=== PATIENT | female | born 1940 | race Caucasian/White ===

== ENCOUNTER 2018-08-30 20:13 | Inpatient (IN) | payer MEDICARE, MEDICAID ==
--- NOTE | 2018-08-30 20:36 | ED Physician Chart ---
ED Chief Complaint/HPI - Patient Information Date Seen:: 08/30/18 Time Seen:: 20:35 Chief Complaint:: Generalized weakness History of Present Illness:: 78 yo female was brought from [facility] to ER for evaluation of generalized weakness for 1 day. Patient had significant body tremor on arrival. Allergies:: Allergies Allergy/AdvReac Type Severity Reaction Status Date / Time No Known Allergies Allergy Verified 07/08/16 16:17 Vitals:: Vital Signs - 8 hr 08/30/18 20:15 Temp 99.6 F HR 74 RR 16 BP 95/50 O2 Sat % 95 ED Review of Systems - Review of Systems General/Constitutional: Fever Skin: Skin lesions Head: No headache Eyes: No pain ENT: No nasal drainage Neck: No stiffness Cardio Vascular: No edema Pulmonary: No cough GI: No nausea, No vomiting Musculoskeletal: No bone or joint pain Neurological: Weakness Other: The review of systems is limited due to dementia and is based on chart reivew. ED Past Medical History - Past Medical History Past Medical History: HTN, CAD, Dyslipidemia, PUD/GERD, Dementia, Other ( Epilepsy, anemia, IBS) Social History: Non Smoker, No Alcohol, No Drug Use Surgical History: None Psychiatricy History: Other (anxiety) Family Medical History - Family Member Mother History Unknown: Yes ED Physical Exam - Physical Examination General/Constitutional: Awake Other Gen/Cons comments:: body tremor Eyes: PERRL Other Skin comments:: multiple, diffuse, small, scattered scaly skin lesions ENMT: Nasal exam nl Neck: No nuchal rigidity Respiratory: No Wheeze/Rhonchi/Rales Cardio Vascular: RRR, No murmur, gallop, rubs, NL S1 S2 GI: No tenderness/rebounding/guarding Extremities: No edema Other Neuro/Psych comments:: oriented to self only ED Labs/Radiology/EKG Results - Lab Results Results: Laboratory Last Values WBC 12.8 Th/cmm (4.8-10.8) H 08/30/18 20:35 RBC 2.96 Mil/cmm (3.80-5.20) L 08/30/18 20:35 Hgb 8.8 gm/dL (12-16) L 08/30/18 20:35 Hct 26.3 % (41.0-60) L 08/30/18 20:35 MCV 88.6 fl (81-100) 08/30/18 20:35 MCH 29.8 pg (27.0-31.0) 08/30/18 20:35 MCHC Differential 33.7 pg (28.0-36.0) 08/30/18 20:35 RDW 13.5 % (11.5-20.0) 08/30/18 20:35 Plt Count 495 Th/cmm (150-400) H 08/30/18 20:35 MPV 7.0 fl 08/30/18 20:35 Add Manual Diff YES 08/30/18 20:35 Band Neutrophils % 2 % (0-10) 08/30/18 20:35 Neutrophils (Manual) 74 % (40-80) 08/30/18 20:35 Lymphocytes 7 % (20-50) L 08/30/18 20:35 Monocytes 5 % (2-10) 08/30/18 20:35 Eosinophils 12 % (0-5) H 08/30/18 20:35 Sodium 139 mEq/L (136-145) 08/30/18 20:35 Potassium 6.1 mEq/L (3.5-5.1) H* 08/30/18 20:35 Chloride 107 mEq/L (98-107) 08/30/18 20:35 Carbon Dioxide 10.6 mEq/L (21.0-31.0) L 08/30/18 20:35 Anion Gap 27.5 (7.0-16.0) H 08/30/18 20:35 BUN 140 mg/dL (7-25) H* 08/30/18 20:35 Creatinine 11.1 mg/dL (0.6-1.2) H* 08/30/18 20:35 Est GFR ( Amer) TNP 08/30/18 20:35 Est GFR (Non-Af Amer) TNP 08/30/18 20:35 BUN/Creatinine Ratio 12.6 08/30/18 20:35 Glucose 159 mg/dL (70-105) H 08/30/18 20:35 Whole Bld Lactic Acid 1.09 mmol/L (0.60-1.99) 08/30/18 20:35 Calcium 9.8 mg/dL (8.6-10.3) 08/30/18 20:35 Total Bilirubin 2.1 mg/dL (0.3-1.0) H 08/30/18 20:35 AST 212 U/L (13-39) H 08/30/18 20:35 ALT 215 U/L (7-52) H 08/30/18 20:35 Alkaline Phosphatase 1228 U/L (34-104) H 08/30/18 20:35 Ammonia 83 umol/L (16-53) H 08/30/18 20:35 Troponin I 0.05 ng/mL (0.01-0.05) 08/30/18 20:35 B-Natriuretic Peptide 55.0 pg/mL (5.0-100.0) 08/30/18 20:35 Total Protein 7.7 gm/dL (6.0-8.3) 08/30/18 20:35 Albumin 3.9 gm/dL (3.7-5.3) 08/30/18 20:35 Globulin 3.8 gm/dL 08/30/18 20:35 Albumin/Globulin Ratio 1.0 (1.0-1.8) 08/30/18 20:35 Lipase 137 U/L (11-82) H 08/30/18 20:35 TSH 2.57 uIU/ml (0.34-5.60) 08/30/18 20:35 Urine Source CATH 08/30/18 21:05 Urine Color YELLOW 08/30/18 21:05 Urine Clarity CLOUDY (CLEAR) H 08/30/18 21:05 Urine pH 6.0 (4.6 - 8.0) 08/30/18 21:05 Ur Specific [place] 1.015 (1.005-1.030) 08/30/18 21:05 Urine Protein 30 mg/dL (NEGATIVE) H 08/30/18 21:05 Urine Glucose (UA) 100 mg/dL (NEGATIVE) H 08/30/18 21:05 Urine Ketones NEGATIVE mg/dL (NEGATIVE) 08/30/18 21:05 Urine Blood MODERATE (NEGATIVE) H 08/30/18 21:05 Urine Nitrate POSITIVE (NEGATIVE) H 08/30/18 21:05 Urine Bilirubin NEGATIVE (NEGATIVE) 08/30/18 21:05 Urine Urobilinogen 0.2 E.U./dL (0.2 - 1.0) 08/30/18 21:05 Ur Leukocyte Esterase MODERATE (NEGATIVE) H 08/30/18 21:05 Urine RBC 2-5 /hpf (0-5) 08/30/18 21:05 Urine WBC 10-25 /hpf (0-5) H 08/30/18 21:05 Ur Epithelial Cells FEW /lpf (FEW) 08/30/18 21:05 Urine Bacteria 4+ /hpf (NONE SEEN) H 08/30/18 21:05 - EKG Interpretations Comments:: EKG was unclear due to significant artifacts caused by tremor ED Assessment - Assessment General Assessment: Acute renal failure Hyperkalemia UTI Leukocytosis Elevated liver function enzymes Normocytic anemia Epilepsy Assessment/Comments:: CBC, CMP, Trop I, BNP, UA CXR, EKG Calcium gluconate 1g IV Sodium bicarb 50mEq IV D50 50ml IV Insulin 8 unit IV Albuterol 10mg Neb Kayexalate 30mg PO Rocephin 1g NS 500ml IV bolus Keppra level Admit to ICU ED Septic Shock - . Is Septic Shock (SBP<90, OR Lactate>4 mmol\L) present?: No - <6hrs of presentation: Vital Signs: Vital Signs - 8 hr 08/30/18 20:15 Temp 99.6 F HR 74 RR 16 BP 95/50 O2 Sat % 95 ED Reassessment (Disposition) - Reassessment Reassessment Condition:: Improved - Patient Disposition Discharge/Transfer:: Acute Care w/in this hosp Admitting Medical Physician:: Craig Basilio
[2018-08-30 20:42] LABS: HEMATOCRIT 26.3 % (41.0-60); HEMOGLOBIN 8.8 gm/dL (12-16); MEAN CELL VOLUME 88.6 fl (81-100); MEAN CORPUSCULAR HEMOGLOBIN 29.8 pg (27.0-31.0); MEAN CORPUSCULAR HGB CONC 33.7 pg (28.0-36.0); PLATELET COUNT 495 Th/cmm (150-400); RED BLOOD COUNT 2.96 Mil/cmm (3.80-5.20); RED CELL DISTRIBUTION WIDTH 13.5 % (11.5-20.0); WHITE BLOOD COUNT 12.8 Th/cmm (4.8-10.8)
[2018-08-30 21:05] LABS: ALBUMIN 3.9 gm/dL (3.7-5.3); ALKALINE PHOSPHATASE 1228 U/L (34-104); ANION GAP 27.5 (7.0-16.0); BILIRUBIN,TOTAL 2.1 mg/dL (0.3-1.0); CALCIUM SERUM 9.8 mg/dL (8.6-10.3); CARBON DIOXIDE 10.6 mEq/L (21.0-31.0); CHLORIDE 107 mEq/L (98-107); GLUCOSE 159 mg/dL (70-105); SGOT 212 U/L (13-39); SGPT/ALT 215 U/L (7-52); SODIUM SERUM 139 mEq/L (136-145); TOTAL PROTEIN,SERUM 7.7 gm/dL (6.0-8.3)
[2018-08-30 21:08] LABS: BUN - UREA NITROGEN 140 mg/dL (7-25); CREATININE - SERUM 11.1 mg/dL (0.6-1.2); POTASSIUM SERUM 6.1 mEq/L (3.5-5.1)
[2018-08-30 21:17] LABS: URINE SOURCE CATH
[2018-08-30] MEDS ORDERED: Calcium Gluconate 1 GM in Sodium Chloride 0.9% 100 ML IV ONE (21:22)
[2018-08-30 21:23] LABS: URINE BILIRUBIN NEGATIVE (NEGATIVE); URINE BLOOD MODERATE (NEGATIVE); URINE GLUCOSE (UA) 100 mg/dL (NEGATIVE); URINE KETONE NEGATIVE (NEGATIVE); URINE LEUKOCYTE ESTERASE MODERATE (NEGATIVE); URINE MICROSCOPIC INDICATED? YES; URINE NITRATE POSITIVE (NEGATIVE); URINE PROTEIN 30 mg/dL (NEGATIVE); URINE UROBILINOGEN 0.2 E.U./dL (0.2 - 1.0)
[2018-08-30] MEDS ORDERED: Sodium Bicarbonate 8.4% 50mEq PFS IVP STA (21:24)
[2018-08-30] MEDS ORDERED: Albuterol Nebulizer 2.5mg/3mL HHN STA (21:25)
[2018-08-30] MEDS ORDERED: Dextrose 50% 50 mL Abboject IVP STA (21:27)
[2018-08-30] MEDS ORDERED: INSULIN HUMAN REGULAR 100 UNITS/ML UNIT IV ONE (21:27)
[2018-08-30 21:28] LABS: BAND NEUTROPHILE 2 % (0-10); EOSINOPHIL 12 % (0-5); LYMPHOCYTE 7 % (20-50); MONOCYTE 5 % (2-10); NEUTROPHILS 74 % (40-80)
[2018-08-30 21:29] LABS: URINE CLARITY CLOUDY (CLEAR); URINE COLOR YELLOW
[2018-08-30 21:32] LABS: URINE BACTERIA 4+ /hpf (NONE SEEN); URINE EPITHELIAL CELLS FEW /lpf (FEW)
[2018-08-30] MEDS ORDERED: Albuterol Nebulizer 2.5mg/3mL HHN ONE (21:32)
[2018-08-30] MEDS ORDERED: INSULIN HUMAN REGULAR 100 UNITS/ML UNIT ONE (21:40)
[2018-08-30] MEDS ORDERED: Sodium Bicarbonate 8.4% 50mEq Vial ONE (21:41)
[2018-08-30] MEDS ORDERED: Sodium Chloride 0.9% 500 ML IV ONE (21:41)
[2018-08-30] MEDS ORDERED: Dextrose 50% 50 mL Abboject IVP ONE (21:42)
[2018-08-30] MEDS ORDERED: Sodium Bicarbonate 8.4% 50mEq PFS IVP ONE (21:44)
[2018-08-30] MEDS ORDERED: Albuterol Nebulizer 2.5mg/3mL HHN PRN (22:04)
[2018-08-30] MEDS ORDERED: Ipratropium Neb 0.5 mg/2.5 mL UD HHN PRN (22:04)
[2018-08-30 23:18] VITALS: BP 113/48
[2018-08-31] MEDS ORDERED: Pneumococcal Vaccine 0.5 mL Vial IM ONE (00:36)
[2018-08-31] MEDS ORDERED: Influenza Vaccine (65 yr & older) 0.5 ml Syr IM ONE (00:36)
[2018-08-31] MEDS: D5-0.45NS 1,000 ML IV SCH ×3 (03:48→17:47)
[2018-08-31 04:13] LABS: MEAN CELL VOLUME 88.2 fl (81-100); MEAN CORPUSCULAR HEMOGLOBIN 30.3 pg (27.0-31.0); MEAN CORPUSCULAR HGB CONC 34.4 pg (28.0-36.0); MEAN PLATELET VOLUME 6.2 fl; PLATELET COUNT 463 Th/cmm (150-400); RED BLOOD COUNT 2.61 Mil/cmm (3.80-5.20); RED CELL DISTRIBUTION WIDTH 13.3 % (11.5-20.0); WHITE BLOOD COUNT 12.7 Th/cmm (4.8-10.8)
[2018-08-31 05:21] LABS: HEMOGLOBIN 7.9 gm/dL (12-16); MORPHOLOGY COMMENT YES
[2018-08-31 05:36] LABS: ALB/GLOB RATIO 0.9 (1.0-1.8); ALBUMIN 3.4 gm/dL (3.7-5.3); ALKALINE PHOSPHATASE 1022 U/L (34-104); ANION GAP 25.5 (7.0-16.0); BILIRUBIN,TOTAL 1.6 mg/dL (0.3-1.0); CALCIUM SERUM 9.6 mg/dL (8.6-10.3); CARBON DIOXIDE 13.2 mEq/L (21.0-31.0); CHLORIDE 110 mEq/L (98-107); GLUCOSE 202 mg/dL (70-105); POTASSIUM SERUM 4.7 mEq/L (3.5-5.1); SGOT 129 U/L (13-39); SGPT/ALT 174 U/L (7-52); SODIUM SERUM 144 mEq/L (136-145)
[2018-08-31 06:03] LABS: BUN - UREA NITROGEN 137 mg/dL (7-25)
[2018-08-31 06:04] LABS: CREATININE - SERUM 10.8 mg/dL (0.6-1.2); PHOSPHOROUS 9.2 mg/dL (2.5-5.0)
[2018-08-31 06:29] LABS: BAND NEUTROPHILE 1 % (0-10); EOSINOPHIL 3 % (0-5); LYMPHOCYTE 7 % (20-50); MONOCYTE 8 % (2-10); NEUTROPHILS 81 % (40-80); PLATELET ESTIMATE ADEQUATE (NORMAL)
[2018-08-31 06:44] LABS: MAGNESIUM 2.1 mg/dL (1.9-2.7)
--- NOTE | 2018-08-31 08:00 | Diagnostic Imaging Report ---
CHEST X-RAY: AP view INDICATION: Shortness of breath COMPARISON: 07/08/2016 FINDINGS: Exam is limited due to positioning and body habitus. Increased initial lung markings are noted. No focal consolidation or effusions. There is a 5 mm calcified granuloma of the left upper lung zone. Mild cardiomegaly is noted. Osseous structures are intact. IMPRESSION: Increased interstitial lung markings which may be due to chronic lung changes, however, a mild degree of congestion should also be considered. Clinical correlation is recommended No focal consolidation identified. Mild cardiomegaly. Calcified granuloma of the left upper lung zone.
[2018-08-31] MEDS ORDERED: VTE Chemical Prophylaxis Screen/ICU transfer MC PRN (08:15)
[2018-08-31] MEDS: Ferrous Sulfate 325 MG TAB PO SCH (10:52)
[2018-08-31] MEDS: Multivitamin Tab PO SCH (10:52)
--- NOTE | 2018-08-31 12:25 | Diagnostic Imaging Report ---
Ultrasound abdomen HISTORY: Acute renal failure COMPARISON: None Technique: Sonography of the abdomen was performed in multiple planes. FINDINGS: Exam is limited due to patient's medical condition and body habitus. The visualized portions of the pancreas are grossly unremarkable. The liver demonstrates normal echogenicity and measures 14.9 cm. The liver margins are not well-defined, however, no obvious focal lesions. The visualized portions of the abdominal aorta within normal limits in size. The gallbladder and common bile duct were not visualized. The right kidney measures 10.1 x 4.9 cm. The inferior aspect of the right kidney is not well-visualized. No evidence of focal lesions or hydronephrosis. The left kidney measures 11.5 x 5.2 cm. The inferior aspect of the left kidney is not well-visualized. No evidence of focal lesion or hydronephrosis. The spleen measures 9.8 cm. IMPRESSION: Limited exam due to patient's medical condition and body habitus. Suboptimal evaluation of the lower poles of the bilateral kidneys. No evidence of hydronephrosis. The gallbladder common bile duct were not visualized. This may be secondary to gallbladder contraction and/or patient body habitus, however, previous cholecystectomy cannot be excluded. Please correlate with clinical and possible surgical history.
--- NOTE | 2018-08-31 12:40 | Internal Medicine Prog Note ---
Internal Medicine Subjective - Subjective Service Date: 08/31/18 ([id number] hn [id number]) Internal Medicine Objective - Results Result Diagrams: 08/31/18 04:05 08/31/18 04:05 Recent Labs: Laboratory Last Values WBC 12.7 Th/cmm (4.8-10.8) H 08/31/18 04:05 RBC 2.61 Mil/cmm (3.80-5.20) L 08/31/18 04:05 Hgb 7.9 gm/dL (12-16) L* 08/31/18 04:05 Hct 23.0 % (41.0-60) L 08/31/18 04:05 MCV 88.2 fl (81-100) 08/31/18 04:05 MCH 30.3 pg (27.0-31.0) 08/31/18 04:05 MCHC Differential 34.4 pg (28.0-36.0) 08/31/18 04:05 RDW 13.3 % (11.5-20.0) 08/31/18 04:05 Plt Count 463 Th/cmm (150-400) H 08/31/18 04:05 MPV 6.2 fl 08/31/18 04:05 Add Manual Diff YES 08/31/18 04:05 Band Neutrophils % 1 % (0-10) 08/31/18 04:05 Neutrophils (Manual) 81 % (40-80) H 08/31/18 04:05 Lymphocytes 7 % (20-50) L 08/31/18 04:05 Monocytes 8 % (2-10) 08/31/18 04:05 Eosinophils 3 % (0-5) 08/31/18 04:05 Platelet Estimate ADEQUATE (NORMAL) 08/31/18 04:05 Morphology Comment YES 08/31/18 04:05 Sodium 144 mEq/L (136-145) 08/31/18 04:05 Potassium 4.7 mEq/L (3.5-5.1) 08/31/18 04:05 Chloride 110 mEq/L (98-107) H 08/31/18 04:05 Carbon Dioxide 13.2 mEq/L (21.0-31.0) L 08/31/18 04:05 Anion Gap 25.5 (7.0-16.0) H 08/31/18 04:05 BUN 137 mg/dL (7-25) H* 08/31/18 04:05 Creatinine 10.8 mg/dL (0.6-1.2) H* 08/31/18 04:05 Est GFR ( Amer) TNP 08/31/18 04:05 Est GFR (Non-Af Amer) TNP 08/31/18 04:05 BUN/Creatinine Ratio 12.7 08/31/18 04:05 Glucose 202 mg/dL (70-105) H 08/31/18 04:05 POC Glucose 259 MG/DL (70 - 105) H 08/30/18 22:35 Whole Bld Lactic Acid 1.09 mmol/L (0.60-1.99) 08/30/18 20:35 Calcium 9.6 mg/dL (8.6-10.3) 08/31/18 04:05 Phosphorus 9.2 mg/dL (2.5-5.0) H* 08/31/18 04:05 Magnesium 2.1 mg/dL (1.9-2.7) 08/31/18 04:05 Total Bilirubin 1.6 mg/dL (0.3-1.0) H 08/31/18 04:05 AST 129 U/L (13-39) H 08/31/18 04:05 ALT 174 U/L (7-52) H 08/31/18 04:05 Alkaline Phosphatase 1022 U/L (34-104) H 08/31/18 04:05 Ammonia 83 umol/L (16-53) H 08/30/18 20:35 Troponin I 0.05 ng/mL (0.01-0.05) 08/30/18 20:35 B-Natriuretic Peptide 55.0 pg/mL (5.0-100.0) 08/30/18 20:35 Total Protein 7.0 gm/dL (6.0-8.3) 08/31/18 04:05 Albumin 3.4 gm/dL (3.7-5.3) L 08/31/18 04:05 Globulin 3.6 gm/dL 08/31/18 04:05 Albumin/Globulin Ratio 0.9 (1.0-1.8) L 08/31/18 04:05 Lipase 137 U/L (11-82) H 08/30/18 20:35 TSH 2.57 uIU/ml (0.34-5.60) 08/30/18 20:35 Urine Source CATH 08/30/18 21:05 Urine Color YELLOW 08/30/18 21:05 Urine Clarity CLOUDY (CLEAR) H 08/30/18 21:05 Urine pH 6.0 (4.6 - 8.0) 08/30/18 21:05 Ur Specific [place] 1.015 (1.005-1.030) 08/30/18 21:05 Urine Protein 30 mg/dL (NEGATIVE) H 08/30/18 21:05 Urine Glucose (UA) 100 mg/dL (NEGATIVE) H 08/30/18 21:05 Urine Ketones NEGATIVE mg/dL (NEGATIVE) 08/30/18 21:05 Urine Blood MODERATE (NEGATIVE) H 08/30/18 21:05 Urine Nitrate POSITIVE (NEGATIVE) H 08/30/18 21:05 Urine Bilirubin NEGATIVE (NEGATIVE) 08/30/18 21:05 Urine Urobilinogen 0.2 E.U./dL (0.2 - 1.0) 08/30/18 21:05 Ur Leukocyte Esterase MODERATE (NEGATIVE) H 08/30/18 21:05 Urine RBC 2-5 /hpf (0-5) 08/30/18 21:05 Urine WBC 10-25 /hpf (0-5) H 08/30/18 21:05 Ur Epithelial Cells FEW /lpf (FEW) 08/30/18 21:05 Urine Bacteria 4+ /hpf (NONE SEEN) H 08/30/18 21:05 - Physical Exam Vitals and I&O: Vital Signs Temp 99.0 F 08/31/18 12:00 Pulse 96 08/31/18 12:00 Resp 14 08/31/18 12:00 BP 108/43 08/31/18 12:00 Pulse Ox 100 08/31/18 12:00 Intake & Output 08/30/18 08/31/18 08/31/18 18:59 06:59 18:59 Intake Total 50 Output Total 900 Balance -850 Weight (lbs) 148 lb Intake: Intake, IV Amount 50 Output: Urine 900 Other: Weight Source Bedscale Active Medications: Current Medications Acetaminophen (Tylenol) 650 mg PO Q4H PRN PRN Reason: Pain Or Fever above 101 Stop: 10/29/18 22:03 Albuterol Sulfate (Albuterol 2.5mg/3ml Neb Ud) 2.5 mg HHN Q2HRT PRN PRN Reason: Shortness of Breath or Wheeze Stop: 10/29/18 22:03 Amantadine HCl (Symmetrel) 100 mg PO QOD LENA Stop: 10/31/18 08:59 Diphenhydramine HCl (Benadryl) 25 mg PO QID PRN PRN Reason: Itching Stop: 10/30/18 12:23 Ferrous Sulfate (Iron) 325 mg PO DAILY LENA Stop: 10/30/18 08:59 Last Admin: 08/31/18 10:52 Dose: 325 mg Heparin Sodium (Porcine) (Heparin) 5,000 units SUBQ Q12HR LENA Stop: 10/30/18 08:59 Last Admin: 08/31/18 10:23 Dose: Not Given Hydrocortisone (Hydrocortisone 1%) 1 appl TP BID PRN PRN Reason: Itching Stop: 10/30/18 16:59 Ceftriaxone Sodium 1 gm/ (Sodium Chloride) 50 mls @ 100 mls/hr IV Q24HR LENA Stop: 10/30/18 21:59 Dextrose/Sodium Chloride (D5-0.45ns) 1,000 mls @ 100 mls/hr IV .Q10H LENA Stop: 10/29/18 22:14 Last Admin: 08/31/18 03:48 Dose: 100 mls/hr Ipratropium [place] (Atrovent Neb 0.5mg/2.5ml) 0.5 mg HHN Q2HRT PRN PRN Reason: Shortness of Breath or Wheeze Stop: 10/29/18 22:03 Levetiracetam (Keppra) 500 mg PO BID LENA Stop: 10/30/18 08:59 Last Admin: 08/31/18 10:52 Dose: 500 mg Memantine (Namenda) 5 mg PO DAILY LENA Stop: 10/30/18 08:59 Last Admin: 08/31/18 10:52 Dose: 5 mg Miscellaneous (Vte Chemical Prophylaxis Screen/Icu Transfer) 1 ea MC PRN PRN PRN Reason: PROTOCOL Stop: 10/30/18 08:14 Multivitamins/Vitamin C (Theragran) 1 tab PO DAILY LENA Stop: 10/30/18 08:59 Last Admin: 08/31/18 10:52 Dose: 1 tab Ondansetron HCl (Zofran) 4 mg IV Q8H PRN PRN Reason: Nausea / Vomiting Stop: 10/29/18 22:03
[2018-08-31] MEDS ORDERED: Sodium Bicarbonate 8.4% 50mEq PFS IVP ONE (13:07)
[2018-08-31 14:48] LABS: pH 7.47 (7.35-7.45)
[2018-08-31] MEDS: Lactulose 10 Gm/15 mL 30mL UDC PO SCH (15:04)
--- NOTE | 2018-08-31 16:58 | History & Physical ---
ADMIT DATE: 08/31/2018 DICTATED FOR: Craig Basilio D.O. CHIEF COMPLAINT: Generalized weakness. HISTORY OF PRESENT ILLNESS: This is a 78-year-old female who is well known to me from [facility], is admitted to the ICU unit. The patient's BUN and creatinine was noted to be elevated, BUN of 140 and creatinine 11.1 and potassium of 6.1 and phosphorus of 9.2. The patient's daughter is currently at bedside and updates given and regarding plan of care was discussed. Upon examining the patient in the ICU, the patient is awake, alert, in no apparent distress. PAST MEDICAL HISTORY: Hypertension, CAD, dyslipidemia, GERD, dementia, epilepsy, anemia, and IBS. SOCIAL HISTORY: The patient is a snf resident, requiring 24-hour nursing care. PAST SURGICAL HISTORY: None. FAMILY HISTORY: Noncontributory. MEDICATIONS: Symmetrel, ferrous sulfate, Keppra, Namenda, multivitamin with vitamin C. REVIEW OF SYSTEMS: GENERAL: The patient complained of weakness. HEENT: Denies any headache, earache, eye pain, nasal drainage, throat pain. CARDIOVASCULAR: Denies any chest pain. RESPIRATORY: Denies any shortness of breath, but complains of dry cough. GASTROINTESTINAL: Denies nausea, vomiting, or abdominal pain. GENITOURINARY: Denies dysuria or hematuria. SKIN: The patient complains of itchiness and generalized rash. PHYSICAL EXAMINATION: GENERAL: Elderly female, awake, alert, in no apparent distress. VITAL SIGNS: Temperature 99.0, heart rate 96, blood pressure 108/43, respirations 14, and O2 100%. HEENT: Head; normocephalic, atraumatic. NECK: Supple. No mass. LUNGS: Clear bilaterally. HEART: Regular rate and rhythm. ABDOMEN: Soft, nontender. SKIN: The patient is noted with generalized rashes. LABORATORY DATA: WBC 12.7, H and H 7.9/23.0, and platelet of 463. Sodium 144, potassium 4.7, BUN 137, creatinine 10.8, and phosphorus of 9.2. DIAGNOSTICS: The patient had a chest x-ray done and impression is increased interstitial lung markings, which may be due to chronic lung changes; however, a mild degree of congestion should also be considered. No focal consolidation identified, mild cardiomegaly, calcified granuloma of the left upper lung zone. The patient also had abdominal ultrasound done, impression is suboptimal evaluation of the lower poles of the bilateral kidneys, no evidence of hydronephrosis. the gallbladder, and common duct were not visualized and may be secondary to gallbladder contraction and/or body habitus; however, previous cholecystectomy cannot be excluded. ASSESSMENT: Acute urinary tract infection, severe dehydration, acute renal failure secondary to severe dehydration, anemia, leukocytosis, mild protein-calorie malnutrition, hypertension, coronary artery disease, dyslipidemia, gastroesophageal reflux disease, dementia, and epilepsy. PLAN: The patient to be admitted to the ICU unit. We will get a Renal consultation. We will get a renal ultrasound. We will keep the patient on empiric IV antibiotics of Rocephin. We will send urine for cultures. We will do a 24-hour urine creatinine clearance. Keep the patient on aggressive IV fluids for hydration. We will continue to follow this patient. [facility]# [id number]
[2018-08-31] MEDS ORDERED: cefTRIAXone 1 GM in Sodium Chloride 0.9% 50 ML IV SCH (22:00)
--- NOTE | 2018-09-01 03:47 | Consultation ---
DATE OF CONSULTATION: 08/31/2018 ATTENDING PHYSICIAN: Dr. Craig Basilio. REASON FOR CONSULTATION: Worsening kidney function, electrolyte imbalance, and fluid management. HISTORY OF PRESENT ILLNESS: This is a 78-year-old female with past medical history of hypertension, who was brought in because of generalized weakness. A few days prior to admission, the patient's oral intake has declined. She was not her usual self. A few hours prior to admission, her condition had deteriorated. She was very weak with easy fatigability. This was associated with tremors. She was then brought to the Emergency Room. Her blood pressure was 95/50 with a temperature of 99.6 and a white count of 12.8. Troponin was 0.05 with a BNP of 55 and ammonia of 83. She had no fever, no chills, nausea and vomiting, diarrhea, abdominal pain, headaches, dysuria nor hematuria. Her BUN/creatinine done last 06/05 were 22/0.86. She was on hydrochlorothiazide. She was admitted this time around with a BUN/creatinine of 140/11.1. She was started on IV hydration and her BUN/creatinine today were 137/10.8. PAST MEDICAL HISTORY: 1. Epilepsy. 2. Essential hypertension. 3. Dyslipidemia. 4. GERD. 5. Anemia of chronic disease. 6. Coronary artery disease. CURRENT MEDICATIONS: Currently on acetaminophen, albuterol, amantadine, cefepime, ceftriaxone, ferrous sulfate, ipratropium, Keppra, Namenda, Theragran. ALLERGIES: No known drug allergies. SOCIAL HISTORY: No history of alcohol or tobacco use. 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 FAMILY HISTORY: Sister had a history of breast cancer. REVIEW OF SYSTEMS: GENERAL: Came in because of generalized weakness, easy fatigability, appetite had declined, no fever or chills. HEENT: No mention of headaches, no dizziness. CARDIORESPIRATORY: She has a history of hypertension and coronary artery disease. No chest pain, palpitations, diaphoresis, or cough. No shortness of breath. GASTROINTESTINAL: No nausea and vomiting, abdominal pain or cramping, hematemesis, melena, hematochezia, nor diarrhea. ENDOCRINE: No history of diabetes, no thyroid abnormalities. She has dyslipidemia. MUSCULOSKELETAL: Multiple joint arthralgias. GENITOURINARY: No history of kidney failure; however, comes in with severe kidney failure. No dysuria nor hematuria. HEMATOLOGIC: Anemia of chronic disease. NEUROPSYCH: No syncopal episode nor seizure activity. However, she came in with altered level of consciousness. PHYSICAL EXAMINATION: GENERAL: The patient is quite stuporous, however, comfortable. VITAL SIGNS: Blood pressure is 95/39, pulse 94, temperature 99 degrees. SKIN: Poor turgor, warm, no rash, no jaundice appreciated. HEENT: Head normocephalic, atraumatic. Eyes: Extraocular muscles intact. Pupils equal, round, reactive to light and accommodates. Anicteric sclerae. Pale conjunctivae. Nose: Midline nasal septum. Mouth is dry mucosa with very poor dentition. NECK: Supple, no adenopathy, no thyromegaly, no bruits. Trachea palpated in the midline. CHEST AND CARDIOVASCULAR: S1, S2. Regular rhythm, but no rub, murmur nor gallop appreciated. Point of maximal impulse fifth intercostal space, left midclavicular line. No abdominal or femoral bruits appreciated. LUNGS: Equal in expansion. No use of accessory muscles. No supraclavicular retractions. Decreased breath sounds. Minimal rhonchi, but no rales nor wheezes appreciated. BREASTS: Symmetrical without any discharge. ABDOMEN: Flat, soft, positive for bowel sounds. No bruits either diastolic or systolic. No tenderness, no organomegaly on palpation. RECTAL: Deferred. GENITOURINARY: Normal appearing female genitalia. MUSCULOSKELETAL: No effusions present in her joints, but unable to assess her range of motion. EXTREMITIES: No evidence of any edema, cyanosis nor clubbing with palpable femoral, but I am not able to fully appreciate popliteal and dorsalis pedis pulses. NEUROLOGIC: The patient is alert, verbal, motor is 5/5. Cranial nerves 3-12 intact. Sensory intact. LABORATORY DATA: Labs did reveal white count 12.7, hemoglobin 7.9, hematocrit 23, platelets 463, polys 81%. Sodium 144, potassium 4.7, chloride 110, bicarbonate 13.2, BUN 137, creatinine 10.8, glucose 202. Lactic acid 1.09, calcium 9.6, phosphorus 9.2, magnesium 2.1, total bili 1.6, AST 129, ALT 179, alkaline phosphatase is 1022. Ammonia is 83, albumin is 3.4, lipase is 137. TSH 2.57. IMPRESSION: 1. Acute kidney injury. The patient's oral intake has dramatically diminished over the last few days. She also has been taking hydrochlorothiazide along with an FER inhibitor. Physical exam revealed poor skin turgor with dry oral mucosa. The combination of these medications and decreased oral intake will lead to development of dehydration and was supported by physical exam of poor skin turgor and dry oral mucosa as well as hypotension. Her prerenal azotemia eventually progressed to acute tubular injury. Urinalysis was suggestive of ongoing urinary tract infection and this may also lead to the possibility of developing acute interstitial nephritis. 2. Altered level of consciousness with weakness, possibly metabolic/toxic encephalopathy. 3. Metabolic/toxic encephalopathy secondary to hepatic in nature as well as septicemia. 4. Sepsis secondary to complicated urinary tract infection. 5. Shock liver. 6. Anion gap metabolic acidosis. 7. Epilepsy. 8. Essential hypertension. 9. Dyslipidemia. 10. Gastroesophageal reflux disease. 11. Anemia of chronic disease. 12. Coronary artery disease. PLAN: 1. Continue with IV hydration. 2. Urine sodium, eosinophils, and creatinine. 3. Electrolytes, uric acid level. 4. Urine microalbumin to creatinine ratio. 5. Sodium bicarbonate. 6. ABG. 7. Stool for occult blood. 8. I have discussed the possibility of dialysis with the daughter if above intervention does not improve kidney function. JOB# [id number]
[2018-09-01 04:51] LABS: HEMATOCRIT 22.1 % (41.0-60); MEAN CELL VOLUME 87.5 fl (81-100); MEAN CORPUSCULAR HEMOGLOBIN 30.1 pg (27.0-31.0); MEAN CORPUSCULAR HGB CONC 34.4 pg (28.0-36.0); MEAN PLATELET VOLUME 6.7 fl; PLATELET COUNT 388 Th/cmm (150-400); RED BLOOD COUNT 2.52 Mil/cmm (3.80-5.20); RED CELL DISTRIBUTION WIDTH 13.5 % (11.5-20.0)
[2018-09-01 04:57] LABS: HEMOGLOBIN 7.6 gm/dL (12-16); WHITE BLOOD COUNT 15.1 Th/cmm (4.8-10.8)
[2018-09-01 05:27] LABS: ALBUMIN 3.1 gm/dL (3.7-5.3); ALKALINE PHOSPHATASE 871 U/L (34-104); ANION GAP 19.1 (7.0-16.0); BILIRUBIN,TOTAL 1.3 mg/dL (0.3-1.0); CALCIUM SERUM 8.5 mg/dL (8.6-10.3); CARBON DIOXIDE 16.8 mEq/L (21.0-31.0); CHLORIDE 107 mEq/L (98-107); GLUCOSE 117 mg/dL (70-105); POTASSIUM SERUM 3.9 mEq/L (3.5-5.1); SGOT 123 U/L (13-39); SGPT/ALT 162 U/L (7-52); SODIUM SERUM 139 mEq/L (136-145); TOTAL PROTEIN,SERUM 6.3 gm/dL (6.0-8.3); URIC ACID 9.6 mg/dL (2.3-6.6)
[2018-09-01 05:38] LABS: BAND NEUTROPHILE 1 % (0-10); LYMPHOCYTE 7 % (20-50); MONOCYTE 1 % (2-10); NEUTROPHILS 60 % (40-80)
[2018-09-01 05:39] LABS: EOSINOPHIL 31 % (0-5)
[2018-09-01 05:53] LABS: BUN - UREA NITROGEN 105 mg/dL (7-25)
[2018-09-01] MEDS: Lactulose 10 Gm/15 mL 30mL UDC PO SCH (08:05)
[2018-09-01] MEDS: Ferrous Sulfate 325 MG TAB PO SCH (08:05)
[2018-09-01] MEDS: Multivitamin Tab PO SCH (08:05)
[2018-09-01] MEDS: D5-0.45NS 1,000 ML IV SCH ×2 (08:34→13:10)
[2018-09-01 12:12] LABS: FOLIC ACID >20.0 ng/mL (>3.0)
[2018-09-01] MEDS ORDERED: Sodium Bicarbonate 8.4% 50mEq PFS IVP ONE (12:53)
[2018-09-01 13:09] LABS: HEIGHT 5.2 inches; SURFACE AREA 0.28
--- NOTE | 2018-09-01 13:18 | Internal Medicine Prog Note ---
Internal Medicine Subjective - Subjective Service Date: 09/01/18 Patient seen and examined:: with staff Patient is:: awake, verbal Per staff patient has:: tolerating meds Internal Medicine Objective - Results Result Diagrams: 09/01/18 04:25 09/01/18 10:45 Recent Labs: Laboratory Last Values WBC 15.1 Th/cmm (4.8-10.8) H 09/01/18 04:25 RBC 2.52 Mil/cmm (3.80-5.20) L 09/01/18 04:25 Hgb 7.6 gm/dL (12-16) L* 09/01/18 04:25 Hct 22.1 % (41.0-60) L 09/01/18 04:25 MCV 87.5 fl (81-100) 09/01/18 04:25 MCH 30.1 pg (27.0-31.0) 09/01/18 04:25 MCHC Differential 34.4 pg (28.0-36.0) 09/01/18 04:25 RDW 13.5 % (11.5-20.0) 09/01/18 04:25 Plt Count 388 Th/cmm (150-400) 09/01/18 04:25 MPV 6.7 fl 09/01/18 04:25 Add Manual Diff YES 09/01/18 04:25 Band Neutrophils % 1 % (0-10) 09/01/18 04:25 Neutrophils (Manual) 60 % (40-80) 09/01/18 04:25 Lymphocytes 7 % (20-50) L 09/01/18 04:25 Monocytes 1 % (2-10) L 09/01/18 04:25 Eosinophils 31 % (0-5) H 09/01/18 04:25 Platelet Estimate ADEQUATE (NORMAL) 08/31/18 04:05 Morphology Comment YES 08/31/18 04:05 Specimen Source Arterial 08/31/18 14:33 Sample Site RB 08/31/18 14:33 pH 7.47 (7.35-7.45) H 08/31/18 14:33 pCO2 28.0 mmHg (35.0-45.0) L 08/31/18 14:33 pO2 84.0 mmHg (80.0-100.0) 08/31/18 14:33 HCO3 -2.2 mEq/L (20.0-26.0) L 08/31/18 14:33 Base Excess 23.2 mEq/L (-3.0-3.0) H 08/31/18 14:33 O2 Saturation 97.0 % (92.0-100.0) 08/31/18 14:33 Williams Test NA 08/31/18 14:33 Vent Rate NA 08/31/18 14:33 Inspired O2 21 08/31/18 14:33 Tidal Volume NA 08/31/18 14:33 PEEP NA 08/31/18 14:33 Pressure (ins/psv/peep) NA 08/31/18 14:33 Critical Value SH 08/31/18 14:33 Sodium 139 mEq/L (136-145) 09/01/18 04:25 Potassium 3.9 mEq/L (3.5-5.1) 09/01/18 04:25 Chloride 107 mEq/L (98-107) 09/01/18 04:25 Carbon Dioxide 16.8 mEq/L (21.0-31.0) L 09/01/18 04:25 Anion Gap 19.1 (7.0-16.0) H 09/01/18 04:25 BUN 105 mg/dL (7-25) H* 09/01/18 04:25 Creatinine 9.0 mg/dL (0.6-1.2) H 09/01/18 10:45 Est GFR ( Amer) TNP 09/01/18 04:25 Est GFR (Non-Af Amer) TNP 09/01/18 04:25 BUN/Creatinine Ratio 11.7 09/01/18 04:25 Glucose 117 mg/dL (70-105) H 09/01/18 04:25 POC Glucose 259 MG/DL (70 - 105) H 08/30/18 22:35 Whole Bld Lactic Acid 1.09 mmol/L (0.60-1.99) 08/30/18 20:35 Uric Acid 9.6 mg/dL (2.3-6.6) H 09/01/18 04:25 Calcium 8.5 mg/dL (8.6-10.3) L 09/01/18 04:25 Phosphorus 9.2 mg/dL (2.5-5.0) H* 08/31/18 04:05 Magnesium 2.1 mg/dL (1.9-2.7) 08/31/18 04:05 Total Bilirubin 1.3 mg/dL (0.3-1.0) H 09/01/18 04:25 AST 123 U/L (13-39) H 09/01/18 04:25 ALT 162 U/L (7-52) H 09/01/18 04:25 Alkaline Phosphatase 871 U/L (34-104) H 09/01/18 04:25 Ammonia 83 umol/L (16-53) H 08/30/18 20:35 Troponin I 0.05 ng/mL (0.01-0.05) 08/30/18 20:35 B-Natriuretic Peptide 55.0 pg/mL (5.0-100.0) 08/30/18 20:35 Total Protein 6.3 gm/dL (6.0-8.3) 09/01/18 04:25 Albumin 3.1 gm/dL (3.7-5.3) L 09/01/18 04:25 Globulin 3.2 gm/dL 09/01/18 04:25 Albumin/Globulin Ratio 1.0 (1.0-1.8) 09/01/18 04:25 Lipase 137 U/L (11-82) H 08/30/18 20:35 Vitamin B12 1615 pg/mL (232-1245) H 08/31/18 04:05 Folic Acid >20.0 ng/mL (>3.0) 08/31/18 04:05 TSH 2.57 uIU/ml (0.34-5.60) 08/30/18 20:35 Urine Source CATH 08/30/18 21:05 Urine Color YELLOW 08/30/18 21:05 Urine Clarity CLOUDY (CLEAR) H 08/30/18 21:05 Urine pH 6.0 (4.6 - 8.0) 08/30/18 21:05 Ur Specific [place] 1.015 (1.005-1.030) 08/30/18 21:05 Urine Protein 30 mg/dL (NEGATIVE) H 08/30/18 21:05 Urine Glucose (UA) 100 mg/dL (NEGATIVE) H 08/30/18 21:05 Urine Ketones NEGATIVE mg/dL (NEGATIVE) 08/30/18 21:05 Urine Blood MODERATE (NEGATIVE) H 08/30/18 21:05 Urine Nitrate POSITIVE (NEGATIVE) H 08/30/18 21:05 Urine Bilirubin NEGATIVE (NEGATIVE) 08/30/18 21:05 Urine Urobilinogen 0.2 E.U./dL (0.2 - 1.0) 08/30/18 21:05 Ur Leukocyte Esterase MODERATE (NEGATIVE) H 08/30/18 21:05 Urine RBC 2-5 /hpf (0-5) 08/30/18 21:05 Urine WBC 10-25 /hpf (0-5) H 08/30/18 21:05 Ur Epithelial Cells FEW /lpf (FEW) 08/30/18 21:05 Urine Bacteria 4+ /hpf (NONE SEEN) H 08/30/18 21:05 Urine Collection Time 24 hours 09/01/18 10:45 Urine Total Volume 1700 ml 09/01/18 10:45 Urine Creatinine 64.0 mg/dl (28.0-217.0) 09/01/18 10:45 Creat Clearance 24 Hr 52 ml/min (88.00-128.00) L 09/01/18 10:45 Body Surface Area 0.28 09/01/18 10:45 - Physical Exam Vitals and I&O: Vital Signs Temp 98.9 F 09/01/18 08:00 Pulse 82 09/01/18 11:00 Resp 13 09/01/18 11:00 BP 101/62 09/01/18 11:00 Pulse Ox 100 09/01/18 11:00 Intake & Output 08/31/18 09/01/18 09/01/18 18:59 06:59 18:59 Intake Total 2298.333 1550 Output Total 1100 1000 Balance 1198.333 550 Weight (lbs) 148 lb 150 lb 4.8 oz Intake: Intake, IV Amount 4231.842 0340 D5-0.45NS 1,000 ml @ 100 8094.277 4907 mls/hr IV .Q10H [facility] Rx#: [id number] cefTRIAXone 1 gm In 50 Sodium Chloride 0.9% 50 ml @ 100 mls/hr IV Q24HR [facility] Rx#:[id number] Oral 900 500 Output: Urine 1100 1000 Other: # Bowel Movements 0 Weight Source Bedscale Bedscale Active Medications: Current Medications Acetaminophen (Tylenol) 650 mg PO Q4H PRN PRN Reason: Pain Or Fever above 101 Stop: 10/29/18 22:03 Albuterol Sulfate (Albuterol 2.5mg/3ml Neb Ud) 2.5 mg HHN Q2HRT PRN PRN Reason: Shortness of Breath or Wheeze Stop: 10/29/18 22:03 Amantadine HCl (Symmetrel) 100 mg PO QOD [facility] Stop: 10/31/18 08:59 Last Admin: 09/01/18 08:05 Dose: 100 mg Diphenhydramine HCl (Benadryl) 25 mg PO QID PRN PRN Reason: Itching Stop: 10/30/18 12:23 Last Admin: 09/01/18 02:32 Dose: 25 mg Diphenhydramine HCl (Benadryl 50 Mg/Ml) 25 mg IVP Q6HR PRN PRN Reason: Itching Stop: 10/31/18 07:51 Last Admin: 09/01/18 08:06 Dose: 25 mg Epoetin Trey (Epogen) 5,000 units SUBQ TuThSa@1400 [facility] Stop: 10/31/18 13:59 Ferrous Sulfate (Iron) 325 mg PO DAILY [facility] Stop: 10/30/18 08:59 Last Admin: 09/01/18 08:05 Dose: 325 mg Heparin Sodium (Porcine) (Heparin) 5,000 units SUBQ Q12HR [facility] Stop: 10/30/18 08:59 Last Admin: 09/01/18 08:06 Dose: 5,000 units Hydrocortisone (Hydrocortisone 1%) 1 appl TP BID PRN PRN Reason: Itching Stop: 10/30/18 16:59 Piperacillin Sod/Tazobactam (Sod 2.25 gm/ Sodium Chloride) 50 mls @ 100 mls/hr IV Q8HR [facility] Stop: 10/31/18 12:59 Dextrose/Sodium Chloride (D5-0.45ns) 1,000 mls @ 80 mls/hr IV .[id number] [facility] Stop: 10/31/18 12:59 Ipratropium [place] (Atrovent Neb 0.5mg/2.5ml) 0.5 mg HHN Q2HRT PRN PRN Reason: Shortness of Breath or Wheeze Stop: 10/29/18 22:03 Lactulose (Cephulac) 30 gm PO DAILY [facility] Stop: 10/30/18 14:59 Last Admin: 09/01/18 08:05 Dose: 30 gm Levetiracetam (Keppra) 500 mg PO BID [facility] Stop: 10/30/18 08:59 Last Admin: 09/01/18 08:05 Dose: 500 mg Memantine (Namenda) 5 mg PO DAILY [facility] Stop: 10/30/18 08:59 Last Admin: 09/01/18 08:05 Dose: 5 mg Miscellaneous (Vte Chemical Prophylaxis Screen/Icu Transfer) 1 ea MC PRN PRN PRN Reason: PROTOCOL Stop: 10/30/18 08:14 Multivitamins/Vitamin C (Theragran) 1 tab PO DAILY [facility] Stop: 10/30/18 08:59 Last Admin: 09/01/18 08:05 Dose: 1 tab Mupirocin (Bactroban Oint) 1 appl TP BID [facility] Stop: 09/06/18 16:59 Ondansetron HCl (Zofran) 4 mg IV Q8H PRN PRN Reason: Nausea / Vomiting Stop: 10/29/18 22:03 Last Admin: 08/31/18 16:30 Dose: 4 mg General: weak, alert HEENT: NC/AT, PERRLA Neck: Supple Lungs: CTAB Cardiovascular: RRR, Normal S1, Normal S2 Abdomen: soft, non-tender, non-distended, positive bowel sound Neurological: alert Internal Medicine Assmt/Plan - Assessment Assessment: acute uti acute renal failure secondary to severe dehydration anemia leukocytosis mild protein calorie malnutrition htn cad dyslipidemia gerd dementia epilepsy - Plan Plan: await for 24hour urine results follow up labs in am continue ivf for hydration continue iv rocephin continue current plan of care Nutritional Asmnt/Malnutr-PDOC - Dietary Evaluation Malnutrition Findings (Please click <Entered> for more info): Nutritional Asmnt/Malnutrition Start: 08/31/18 13: 28 Text: Status: Complete Freq: Protocol: Document 08/31/18 13:28 KRISTAN (Rec: 08/31/18 13:50 KRISTAN [email or web address]) Nutritional Asmnt/Malnutrition Patient General Information Nutritional Screening High Risk Consult Diagnosis acute renal failure Pertinent Medical Hx/Surgical Hx HTN, CAD, hyslipidemia, PUD/ GERD, dementia, Epilepsy, anemia, IBS, anxiety Subjective Information Pt seen resting in bed at time of visit, family at bedside talking with MD. Renal diet started from lunch. Consult received for BS 259. Current Diet Order/ Nutrition Support renal Pertinent Medications D5-0.45ns, iron, theragran Pertinent Labs 08/31 K 4.7 (improved), Cl 110 , BUN 137, Cr 10.8, glucose 202, Phos 9.2, Alb 3.4 08/30 K 6.1, BUN 140, Cr 11.1, glucose 159, alb 3.9 Nutritional Hx/Data Height 5 ft 2 in Height (Calculated Centimeters) 157.5 Current Weight (lbs) 148 lb Weight (Calculated Kilograms) 67.1 Weight (Calculated Grams) 69617.7 [place] Body Weight 120 Body Mass Index (BMI) 27.1 Weight Status Overweight GI Symptoms GI Symptoms None Last BM not indicated Difficult in: None Skin Integrity/Comment: scar to left face, rash to left leg, abdomen, right/left upper arm Estimated Nutritional Goals BEE in Kcals: Using Current wt Calories/Kcals/Kg 23-27 Kcals Calculated 3609-3406 Protein: Using Current wt Protein g/k.7 Protein Calculated 47 monitor renal labs Fluid: ml per MD Nutritional Problem 1. Problem Problem altered nutrition related labs Etiology acute renal failure Signs/Symptoms: BUN 137-140, Cr 10.8-11.1, glucose 159-202, Phos 9.2 Malnutrition Alert Is there a minimum of two criteria No selected? Query Text:Check all the applicable criteria. A minimum of two criteria are recommended for diagnosis of either severe or non-severe malnutrition. Intervention/Recommendation Comments 1. Continue with renal diet as ordered. Limit protein intake to 50g per day. Modify diet to renal 50g per protocol. 2. Monitor PO intake, wt, labs and skin integrity 3. F/U as high risk in 2-3 days, 09/02-09/03 Expected Outcomes/Goals Expected Outcomes/Goals 1. PO intake to meet at least 75% of nutritional needs. 2. Wt stability, skin to remain intact, labs to approach WNL.
--- NOTE | 2018-09-01 13:39 | General Progress Note ---
Subjective - Review of Systems Service Date: 09/01/18 Subjective: sedated, agitated this am Objective - Results Result Diagrams: 09/01/18 04:25 09/01/18 10:45 Recent Labs: Laboratory Last Values WBC 15.1 Th/cmm (4.8-10.8) H 09/01/18 04:25 RBC 2.52 Mil/cmm (3.80-5.20) L 09/01/18 04:25 Hgb 7.6 gm/dL (12-16) L* 09/01/18 04:25 Hct 22.1 % (41.0-60) L 09/01/18 04:25 MCV 87.5 fl (81-100) 09/01/18 04:25 MCH 30.1 pg (27.0-31.0) 09/01/18 04:25 MCHC Differential 34.4 pg (28.0-36.0) 09/01/18 04:25 RDW 13.5 % (11.5-20.0) 09/01/18 04:25 Plt Count 388 Th/cmm (150-400) 09/01/18 04:25 MPV 6.7 fl 09/01/18 04:25 Add Manual Diff YES 09/01/18 04:25 Band Neutrophils % 1 % (0-10) 09/01/18 04:25 Neutrophils (Manual) 60 % (40-80) 09/01/18 04:25 Lymphocytes 7 % (20-50) L 09/01/18 04:25 Monocytes 1 % (2-10) L 09/01/18 04:25 Eosinophils 31 % (0-5) H 09/01/18 04:25 Platelet Estimate ADEQUATE (NORMAL) 08/31/18 04:05 Morphology Comment YES 08/31/18 04:05 Specimen Source Arterial 08/31/18 14:33 Sample Site RB 08/31/18 14:33 pH 7.47 (7.35-7.45) H 08/31/18 14:33 pCO2 28.0 mmHg (35.0-45.0) L 08/31/18 14:33 pO2 84.0 mmHg (80.0-100.0) 08/31/18 14:33 HCO3 -2.2 mEq/L (20.0-26.0) L 08/31/18 14:33 Base Excess 23.2 mEq/L (-3.0-3.0) H 08/31/18 14:33 O2 Saturation 97.0 % (92.0-100.0) 08/31/18 14:33 Williams Test NA 08/31/18 14:33 Vent Rate NA 08/31/18 14:33 Inspired O2 21 08/31/18 14:33 Tidal Volume NA 08/31/18 14:33 PEEP NA 08/31/18 14:33 Pressure (ins/psv/peep) NA 08/31/18 14:33 Critical Value SH 08/31/18 14:33 Sodium 139 mEq/L (136-145) 09/01/18 04:25 Potassium 3.9 mEq/L (3.5-5.1) 09/01/18 04:25 Chloride 107 mEq/L (98-107) 09/01/18 04:25 Carbon Dioxide 16.8 mEq/L (21.0-31.0) L 09/01/18 04:25 Anion Gap 19.1 (7.0-16.0) H 09/01/18 04:25 BUN 105 mg/dL (7-25) H* 09/01/18 04:25 Creatinine 9.0 mg/dL (0.6-1.2) H 09/01/18 10:45 Est GFR ( Amer) TNP 09/01/18 04:25 Est GFR (Non-Af Amer) TNP 09/01/18 04:25 BUN/Creatinine Ratio 11.7 09/01/18 04:25 Glucose 117 mg/dL (70-105) H 09/01/18 04:25 POC Glucose 259 MG/DL (70 - 105) H 08/30/18 22:35 Whole Bld Lactic Acid 1.09 mmol/L (0.60-1.99) 08/30/18 20:35 Uric Acid 9.6 mg/dL (2.3-6.6) H 09/01/18 04:25 Calcium 8.5 mg/dL (8.6-10.3) L 09/01/18 04:25 Phosphorus 9.2 mg/dL (2.5-5.0) H* 08/31/18 04:05 Magnesium 2.1 mg/dL (1.9-2.7) 08/31/18 04:05 Total Bilirubin 1.3 mg/dL (0.3-1.0) H 09/01/18 04:25 AST 123 U/L (13-39) H 09/01/18 04:25 ALT 162 U/L (7-52) H 09/01/18 04:25 Alkaline Phosphatase 871 U/L (34-104) H 09/01/18 04:25 Ammonia 83 umol/L (16-53) H 08/30/18 20:35 Troponin I 0.05 ng/mL (0.01-0.05) 08/30/18 20:35 B-Natriuretic Peptide 55.0 pg/mL (5.0-100.0) 08/30/18 20:35 Total Protein 6.3 gm/dL (6.0-8.3) 09/01/18 04:25 Albumin 3.1 gm/dL (3.7-5.3) L 09/01/18 04:25 Globulin 3.2 gm/dL 09/01/18 04:25 Albumin/Globulin Ratio 1.0 (1.0-1.8) 09/01/18 04:25 Lipase 137 U/L (11-82) H 08/30/18 20:35 Vitamin B12 1615 pg/mL (232-1245) H 08/31/18 04:05 Folic Acid >20.0 ng/mL (>3.0) 08/31/18 04:05 TSH 2.57 uIU/ml (0.34-5.60) 08/30/18 20:35 Urine Source CATH 08/30/18 21:05 Urine Color YELLOW 08/30/18 21:05 Urine Clarity CLOUDY (CLEAR) H 08/30/18 21:05 Urine pH 6.0 (4.6 - 8.0) 08/30/18 21:05 Ur Specific [place] 1.015 (1.005-1.030) 08/30/18 21:05 Urine Protein 30 mg/dL (NEGATIVE) H 08/30/18 21:05 Urine Glucose (UA) 100 mg/dL (NEGATIVE) H 08/30/18 21:05 Urine Ketones NEGATIVE mg/dL (NEGATIVE) 08/30/18 21:05 Urine Blood MODERATE (NEGATIVE) H 08/30/18 21:05 Urine Nitrate POSITIVE (NEGATIVE) H 08/30/18 21:05 Urine Bilirubin NEGATIVE (NEGATIVE) 08/30/18 21:05 Urine Urobilinogen 0.2 E.U./dL (0.2 - 1.0) 08/30/18 21:05 Ur Leukocyte Esterase MODERATE (NEGATIVE) H 08/30/18 21:05 Urine RBC 2-5 /hpf (0-5) 08/30/18 21:05 Urine WBC 10-25 /hpf (0-5) H 08/30/18 21:05 Ur Epithelial Cells FEW /lpf (FEW) 08/30/18 21:05 Urine Bacteria 4+ /hpf (NONE SEEN) H 08/30/18 21:05 Urine Collection Time 24 hours 09/01/18 10:45 Urine Total Volume 1700 ml 09/01/18 10:45 Urine Creatinine 64.0 mg/dl (28.0-217.0) 09/01/18 10:45 Creat Clearance 24 Hr 52 ml/min (88.00-128.00) L 09/01/18 10:45 Body Surface Area 0.28 09/01/18 10:45 - Physical Exam Vitals and I&O: Vital Signs Temp 98.9 F 09/01/18 08:00 Pulse 82 09/01/18 11:00 Resp 13 09/01/18 11:00 BP 101/62 09/01/18 11:00 Pulse Ox 100 09/01/18 11:00 Intake & Output 08/31/18 09/01/18 09/01/18 18:59 06:59 18:59 Intake Total 2298.333 1550 Output Total 1100 1000 Balance 1198.333 550 Weight (lbs) 67.132 kg 68.175 kg Intake: Intake, IV Amount 4425.961 4989 D5-0.45NS 1,000 ml @ 100 4041.699 8238 mls/hr IV .Q10H [facility] Rx#: [id number] cefTRIAXone 1 gm In 50 Sodium Chloride 0.9% 50 ml @ 100 mls/hr IV Q24HR [facility] Rx#:[id number] Oral 900 500 Output: Urine 1100 1000 Other: # Bowel Movements 0 Weight Source Bedscale Bedscale Active Medications: Current Medications Acetaminophen (Tylenol) 650 mg PO Q4H PRN PRN Reason: Pain Or Fever above 101 Stop: 10/29/18 22:03 Albuterol Sulfate (Albuterol 2.5mg/3ml Neb Ud) 2.5 mg HHN Q2HRT PRN PRN Reason: Shortness of Breath or Wheeze Stop: 10/29/18 22:03 Amantadine HCl (Symmetrel) 100 mg PO QOD [facility] Stop: 10/31/18 08:59 Last Admin: 09/01/18 08:05 Dose: 100 mg Diphenhydramine HCl (Benadryl) 25 mg PO QID PRN PRN Reason: Itching Stop: 10/30/18 12:23 Last Admin: 09/01/18 02:32 Dose: 25 mg Diphenhydramine HCl (Benadryl 50 Mg/Ml) 25 mg IVP Q6HR PRN PRN Reason: Itching Stop: 10/31/18 07:51 Last Admin: 09/01/18 13:10 Dose: 25 mg Epoetin Trey (Epogen) 5,000 units SUBQ TuThSa@1400 [facility] Stop: 10/31/18 13:59 Ferrous Sulfate (Iron) 325 mg PO DAILY [facility] Stop: 10/30/18 08:59 Last Admin: 09/01/18 08:05 Dose: 325 mg Heparin Sodium (Porcine) (Heparin) 5,000 units SUBQ Q12HR [facility] Stop: 10/30/18 08:59 Last Admin: 09/01/18 08:06 Dose: 5,000 units Hydrocortisone (Hydrocortisone 1%) 1 appl TP BID PRN PRN Reason: Itching Stop: 10/30/18 16:59 Piperacillin Sod/Tazobactam (Sod 2.25 gm/ Sodium Chloride) 50 mls @ 100 mls/hr IV Q8HR [facility] Stop: 10/31/18 12:59 Dextrose/Sodium Chloride (D5-0.45ns) 1,000 mls @ 80 mls/hr IV .[id number] [facility] Stop: 10/31/18 12:59 Last Admin: 09/01/18 13:10 Dose: 80 mls/hr Ipratropium [place] (Atrovent Neb 0.5mg/2.5ml) 0.5 mg HHN Q2HRT PRN PRN Reason: Shortness of Breath or Wheeze Stop: 10/29/18 22:03 Lactulose (Cephulac) 30 gm PO DAILY [facility] Stop: 10/30/18 14:59 Last Admin: 09/01/18 08:05 Dose: 30 gm Levetiracetam (Keppra) 500 mg PO BID [facility] Stop: 10/30/18 08:59 Last Admin: 09/01/18 08:05 Dose: 500 mg Memantine (Namenda) 5 mg PO DAILY [facility] Stop: 10/30/18 08:59 Last Admin: 09/01/18 08:05 Dose: 5 mg Miscellaneous (Vte Chemical Prophylaxis Screen/Icu Transfer) 1 ea MC PRN PRN PRN Reason: PROTOCOL Stop: 10/30/18 08:14 Multivitamins/Vitamin C (Theragran) 1 tab PO DAILY [facility] Stop: 10/30/18 08:59 Last Admin: 09/01/18 08:05 Dose: 1 tab Mupirocin (Bactroban Oint) 1 appl TP BID [facility] Stop: 09/06/18 16:59 Ondansetron HCl (Zofran) 4 mg IV Q8H PRN PRN Reason: Nausea / Vomiting Stop: 10/29/18 22:03 Last Admin: 08/31/18 16:30 Dose: 4 mg General: No acute distress HEENT: Atraumatic, Mucous membr. moist/pink Neck: Supple, +2 carotid pulse wo bruit Cardiovascular: Regular rate, Normal S1, Normal S2 Lungs: Clear to auscultation Abdomen: Bowel sounds, Soft Extremities: no Edema Neurological: Sensation intact Skin: no Rash Psych/Mental Status: Mood NL Assessment/Plan - Assessment Assessment: MARIA ESTHER ALOC Met/Toxic Enceph Sepsis 2/2 Cx UTI Shock Liver AG Met Acid Epilepsy Anemia of CD - Plan Plan: Lab - Result Diagrams 09/01/18 04:25 09/01/18 10:45 Current Medications Acetaminophen (Tylenol) 650 mg PO Q4H PRN PRN Reason: Pain Or Fever above 101 Stop: 10/29/18 22:03 Albuterol Sulfate (Albuterol 2.5mg/3ml Neb Ud) 2.5 mg HHN Q2HRT PRN PRN Reason: Shortness of Breath or Wheeze Stop: 10/29/18 22:03 Amantadine HCl (Symmetrel) 100 mg PO QOD [facility] Stop: 10/31/18 08:59 Last Admin: 09/01/18 08:05 Dose: 100 mg Diphenhydramine HCl (Benadryl) 25 mg PO QID PRN PRN Reason: Itching Stop: 10/30/18 12:23 Last Admin: 09/01/18 02:32 Dose: 25 mg Diphenhydramine HCl (Benadryl 50 Mg/Ml) 25 mg IVP Q6HR PRN PRN Reason: Itching Stop: 10/31/18 07:51 Last Admin: 09/01/18 13:10 Dose: 25 mg Epoetin Trey (Epogen) 5,000 units SUBQ TuThSa@1400 [facility] Stop: 10/31/18 13:59 Ferrous Sulfate (Iron) 325 mg PO DAILY [facility] Stop: 10/30/18 08:59 Last Admin: 09/01/18 08:05 Dose: 325 mg Heparin Sodium (Porcine) (Heparin) 5,000 units SUBQ Q12HR [facility] Stop: 10/30/18 08:59 Last Admin: 09/01/18 08:06 Dose: 5,000 units Hydrocortisone (Hydrocortisone 1%) 1 appl TP BID PRN PRN Reason: Itching Stop: 10/30/18 16:59 Piperacillin Sod/Tazobactam (Sod 2.25 gm/ Sodium Chloride) 50 mls @ 100 mls/hr IV Q8HR [facility] Stop: 10/31/18 12:59 Dextrose/Sodium Chloride (D5-0.45ns) 1,000 mls @ 80 mls/hr IV .[id number] [facility] Stop: 10/31/18 12:59 Last Admin: 09/01/18 13:10 Dose: 80 mls/hr Ipratropium [place] (Atrovent Neb 0.5mg/2.5ml) 0.5 mg HHN Q2HRT PRN PRN Reason: Shortness of Breath or Wheeze Stop: 10/29/18 22:03 Lactulose (Cephulac) 30 gm PO DAILY [facility] Stop: 10/30/18 14:59 Last Admin: 09/01/18 08:05 Dose: 30 gm Levetiracetam (Keppra) 500 mg PO BID [facility] Stop: 10/30/18 08:59 Last Admin: 09/01/18 08:05 Dose: 500 mg Memantine (Namenda) 5 mg PO DAILY [facility] Stop: 10/30/18 08:59 Last Admin: 09/01/18 08:05 Dose: 5 mg Miscellaneous (Vte Chemical Prophylaxis Screen/Icu Transfer) 1 ea MC PRN PRN PRN Reason: PROTOCOL Stop: 10/30/18 08:14 Multivitamins/Vitamin C (Theragran) 1 tab PO DAILY [facility] Stop: 10/30/18 08:59 Last Admin: 09/01/18 08:05 Dose: 1 tab Mupirocin (Bactroban Oint) 1 appl TP BID [facility] Stop: 09/06/18 16:59 Ondansetron HCl (Zofran) 4 mg IV Q8H PRN PRN Reason: Nausea / Vomiting Stop: 10/29/18 22:03 Last Admin: 08/31/18 16:30 Dose: 4 mg Lab - Result Diagrams 09/01/18 04:25 09/01/18 10:45 Kidney fnc slightly improved now nonoliguric continue IVF, encourage po fluid intake maintain Zosyn f/u electrolytes, cbc Nutritional Asmnt/Malnutr-PDOC - Dietary Evaluation Malnutrition Findings (Please click <Entered> for more info): Nutritional Asmnt/Malnutrition Start: 08/31/18 13: 28 Text: Status: Complete Freq: Protocol: Document 08/31/18 13:28 KRISTAN (Rec: 08/31/18 13:50 KRISTAN [email or web address]) Nutritional Asmnt/Malnutrition Patient General Information Nutritional Screening High Risk Consult Diagnosis acute renal failure Pertinent Medical Hx/Surgical Hx HTN, CAD, hyslipidemia, PUD/ GERD, dementia, Epilepsy, anemia, IBS, anxiety Subjective Information Pt seen resting in bed at time of visit, family at bedside talking with MD. Renal diet started from lunch. Consult received for BS 259. Current Diet Order/ Nutrition Support renal Pertinent Medications D5-0.45ns, iron, theragran Pertinent Labs 08/31 K 4.7 (improved), Cl 110 , BUN 137, Cr 10.8, glucose 202, Phos 9.2, Alb 3.4 08/30 K 6.1, BUN 140, Cr 11.1, glucose 159, alb 3.9 Nutritional Hx/Data Height 1.57 m Height (Calculated Centimeters) 157.5 Current Weight (lbs) 67.132 kg Weight (Calculated Kilograms) 67.1 Weight (Calculated Grams) 68625.7 [place] Body Weight 120 Body Mass Index (BMI) 27.1 Weight Status Overweight GI Symptoms GI Symptoms None Last BM not indicated Difficult in: None Skin Integrity/Comment: scar to left face, rash to left leg, abdomen, right/left upper arm Estimated Nutritional Goals BEE in Kcals: Using Current wt Calories/Kcals/Kg 23-27 Kcals Calculated 0229-3141 Protein: Using Current wt Protein g/k.7 Protein Calculated 47 monitor renal labs Fluid: ml per MD Nutritional Problem 1. Problem Problem altered nutrition related labs Etiology acute renal failure Signs/Symptoms: BUN 137-140, Cr 10.8-11.1, glucose 159-202, Phos 9.2 Malnutrition Alert Is there a minimum of two criteria No selected? Query Text:Check all the applicable criteria. A minimum of two criteria are recommended for diagnosis of either severe or non-severe malnutrition. Intervention/Recommendation Comments 1. Continue with renal diet as ordered. Limit protein intake to 50g per day. Modify diet to renal 50g per protocol. 2. Monitor PO intake, wt, labs and skin integrity 3. F/U as high risk in 2-3 days, 09/02-09/03 Expected Outcomes/Goals Expected Outcomes/Goals 1. PO intake to meet at least 75% of nutritional needs. 2. Wt stability, skin to remain intact, labs to approach WNL.
[2018-09-01] MEDS: Epoetin Alfa 20000 Units/mL Vial SUBQ SCH (14:03)
[2018-09-01 16:49] LABS: EOSINOPHIL SMEAR SOURCE URINE; EOSINOPHILS SMEAR COUNT NONE SEEN (NONE SEEN)
[2018-09-02] MEDS: D5-0.45NS 1,000 ML IV SCH ×2 (01:37→21:15)
[2018-09-02 05:27] LABS: ALBUMIN 2.8 gm/dL (3.7-5.3); ALKALINE PHOSPHATASE 631 U/L (34-104); ANION GAP 16.8 (7.0-16.0); CALCIUM SERUM 8.2 mg/dL (8.6-10.3); CARBON DIOXIDE 18.9 mEq/L (21.0-31.0); CHLORIDE 107 mEq/L (98-107); GLUCOSE 124 mg/dL (70-105); MAGNESIUM 1.5 mg/dL (1.9-2.7); POTASSIUM SERUM 3.7 mEq/L (3.5-5.1); SGOT 65 U/L (13-39); SGPT/ALT 111 U/L (7-52); SODIUM SERUM 139 mEq/L (136-145); TOTAL PROTEIN,SERUM 5.6 gm/dL (6.0-8.3)
[2018-09-02 05:33] LABS: MEAN CELL VOLUME 87.4 fl (81-100); MEAN CORPUSCULAR HEMOGLOBIN 29.4 pg (27.0-31.0); MEAN CORPUSCULAR HGB CONC 33.6 pg (28.0-36.0); MEAN PLATELET VOLUME 6.4 fl; PLATELET COUNT 342 Th/cmm (150-400); RED CELL DISTRIBUTION WIDTH 13.1 % (11.5-20.0); WHITE BLOOD COUNT 11.7 Th/cmm (4.8-10.8)
[2018-09-02 05:34] LABS: BUN - UREA NITROGEN 84 mg/dL (7-25); CREATININE - SERUM 7.9 mg/dL (0.6-1.2)
[2018-09-02 05:36] LABS: HEMOGLOBIN 7.1 gm/dL (12-16)
[2018-09-02 06:22] LABS: BAND NEUTROPHILE 0 % (0-10); NEUTROPHILS 46 % (40-80)
[2018-09-02 06:23] LABS: EOSINOPHIL 38 % (0-5); LYMPHOCYTE 4 % (20-50); MONOCYTE 2 % (2-10); PLATELET ESTIMATE ADEQUATE (NORMAL)
[2018-09-02] MEDS ORDERED: Mag Sulfate 2gm/50mL Premix 2 GM/50 ML BAG IV ONE (06:24)
--- NOTE | 2018-09-02 08:24 | Diagnostic Imaging Report ---
Exam: Chest x-ray HISTORY: Infiltrates. Findings: Frontal examination of the chest reviewed and compared to prior study 08/30/2018. The study demonstrates cardiomegaly superimposed congestive heart failure changes bilaterally. Mediastinal structures midline. The costophrenic angles are clear. Bony thorax is intact. IMPRESSION: Cardiomegaly congestive heart failure changes.
[2018-09-02] MEDS: Lactulose 10 Gm/15 mL 30mL UDC PO SCH (08:50)
[2018-09-02] MEDS: Multivitamin Tab PO SCH (08:50)
[2018-09-02] MEDS: Ferrous Sulfate 325 MG TAB PO SCH (10:19)
[2018-09-02 12:15] LABS: FERRITIN 930 ng/mL (15-150); IRON LC 49 ug/dL (27-139); TIBC (LC) 239 ug/dL (250-450); UIBC 190 ug/dL (118-369)
[2018-09-02] MEDS ORDERED: Sodium Bicarbonate 8.4% 50mEq PFS IVP ONE (12:42)
--- NOTE | 2018-09-02 12:57 | Internal Medicine Prog Note ---
Internal Medicine Subjective - Subjective Service Date: 09/02/18 Patient seen and examined:: with staff Patient is:: awake, verbal Per staff patient has:: tolerating meds Internal Medicine Objective - Results Result Diagrams: 09/02/18 04:50 09/02/18 04:50 Recent Labs: Laboratory Last Values WBC 11.7 Th/cmm (4.8-10.8) H 09/02/18 04:50 RBC 2.40 Mil/cmm (3.80-5.20) L 09/02/18 04:50 Hgb 7.1 gm/dL (12-16) L* 09/02/18 04:50 Hct 21.0 % (41.0-60) L 09/02/18 04:50 MCV 87.4 fl (81-100) 09/02/18 04:50 MCH 29.4 pg (27.0-31.0) 09/02/18 04:50 MCHC Differential 33.6 pg (28.0-36.0) 09/02/18 04:50 RDW 13.1 % (11.5-20.0) 09/02/18 04:50 Plt Count 342 Th/cmm (150-400) 09/02/18 04:50 MPV 6.4 fl 09/02/18 04:50 Add Manual Diff YES 09/02/18 04:50 Band Neutrophils % 0 % (0-10) 09/02/18 04:50 Neutrophils (Manual) 46 % (40-80) 09/02/18 04:50 Lymphocytes 4 % (20-50) L 09/02/18 04:50 Monocytes 2 % (2-10) 09/02/18 04:50 Eosinophils 38 % (0-5) H 09/02/18 04:50 Platelet Estimate ADEQUATE (NORMAL) 09/02/18 04:50 Morphology Comment YES 08/31/18 04:05 Eos Smear Source URINE 09/01/18 10:45 Eos Smear Total Cells NONE SEEN (NONE SEEN) 09/01/18 10:45 Specimen Source Arterial 08/31/18 14:33 Sample Site RB 08/31/18 14:33 pH 7.47 (7.35-7.45) H 08/31/18 14:33 pCO2 28.0 mmHg (35.0-45.0) L 08/31/18 14:33 pO2 84.0 mmHg (80.0-100.0) 08/31/18 14:33 HCO3 -2.2 mEq/L (20.0-26.0) L 08/31/18 14:33 Base Excess 23.2 mEq/L (-3.0-3.0) H 08/31/18 14:33 O2 Saturation 97.0 % (92.0-100.0) 08/31/18 14:33 Williams Test NA 08/31/18 14:33 Vent Rate NA 08/31/18 14:33 Inspired O2 21 08/31/18 14:33 Tidal Volume NA 08/31/18 14:33 PEEP NA 08/31/18 14:33 Pressure (ins/psv/peep) NA 08/31/18 14:33 Critical Value SH 08/31/18 14:33 Sodium 139 mEq/L (136-145) 09/02/18 04:50 Potassium 3.7 mEq/L (3.5-5.1) 09/02/18 04:50 Chloride 107 mEq/L (98-107) 09/02/18 04:50 Carbon Dioxide 18.9 mEq/L (21.0-31.0) L 09/02/18 04:50 Anion Gap 16.8 (7.0-16.0) H 09/02/18 04:50 BUN 84 mg/dL (7-25) H* 09/02/18 04:50 Creatinine 7.9 mg/dL (0.6-1.2) H* 09/02/18 04:50 Est GFR ( Amer) TNP 09/02/18 04:50 Est GFR (Non-Af Amer) TNP 09/02/18 04:50 BUN/Creatinine Ratio 10.6 09/02/18 04:50 Glucose 124 mg/dL (70-105) H 09/02/18 04:50 POC Glucose 259 MG/DL (70 - 105) H 08/30/18 22:35 Whole Bld Lactic Acid 1.09 mmol/L (0.60-1.99) 08/30/18 20:35 Uric Acid 9.6 mg/dL (2.3-6.6) H 09/01/18 04:25 Calcium 8.2 mg/dL (8.6-10.3) L 09/02/18 04:50 Phosphorus 9.2 mg/dL (2.5-5.0) H* 08/31/18 04:05 Magnesium 1.5 mg/dL (1.9-2.7) L 09/02/18 04:50 Iron 49 ug/dL (27-139) 09/01/18 04:25 TIBC 239 ug/dL (250-450) L 09/01/18 04:25 Iron Saturation 21 % (15-55) 09/01/18 04:25 Unsaturated IBC 190 ug/dL (118-369) 09/01/18 04:25 Ferritin 930 ng/mL (15-150) H 09/01/18 04:25 Total Bilirubin 1.0 mg/dL (0.3-1.0) 09/02/18 04:50 AST 65 U/L (13-39) H 09/02/18 04:50 ALT 111 U/L (7-52) H 09/02/18 04:50 Alkaline Phosphatase 631 U/L (34-104) H 09/02/18 04:50 Ammonia 83 umol/L (16-53) H 08/30/18 20:35 Troponin I 0.05 ng/mL (0.01-0.05) 08/30/18 20:35 B-Natriuretic Peptide 42.8 pg/mL (5.0-100.0) 09/02/18 04:50 Total Protein 5.6 gm/dL (6.0-8.3) L 09/02/18 04:50 Albumin 2.8 gm/dL (3.7-5.3) L 09/02/18 04:50 Globulin 2.8 gm/dL 09/02/18 04:50 Albumin/Globulin Ratio 1.0 (1.0-1.8) 09/02/18 04:50 Lipase 137 U/L (11-82) H 08/30/18 20:35 Vitamin B12 1615 pg/mL (232-1245) H 08/31/18 04:05 Folic Acid >20.0 ng/mL (>3.0) 08/31/18 04:05 TSH 2.57 uIU/ml (0.34-5.60) 08/30/18 20:35 Urine Source CATH 08/30/18 21:05 Urine Color YELLOW 08/30/18 21:05 Urine Clarity CLOUDY (CLEAR) H 08/30/18 21:05 Urine pH 6.0 (4.6 - 8.0) 08/30/18 21:05 Ur Specific [place] 1.015 (1.005-1.030) 08/30/18 21:05 Urine Protein 30 mg/dL (NEGATIVE) H 08/30/18 21:05 Urine Glucose (UA) 100 mg/dL (NEGATIVE) H 08/30/18 21:05 Urine Ketones NEGATIVE mg/dL (NEGATIVE) 08/30/18 21:05 Urine Blood MODERATE (NEGATIVE) H 08/30/18 21:05 Urine Nitrate POSITIVE (NEGATIVE) H 08/30/18 21:05 Urine Bilirubin NEGATIVE (NEGATIVE) 08/30/18 21:05 Urine Urobilinogen 0.2 E.U./dL (0.2 - 1.0) 08/30/18 21:05 Ur Leukocyte Esterase MODERATE (NEGATIVE) H 08/30/18 21:05 Urine RBC 2-5 /hpf (0-5) 08/30/18 21:05 Urine WBC 10-25 /hpf (0-5) H 08/30/18 21:05 Ur Epithelial Cells FEW /lpf (FEW) 08/30/18 21:05 Urine Bacteria 4+ /hpf (NONE SEEN) H 08/30/18 21:05 U Random Total Protein 105.0 mg/dL 09/01/18 13:28 Ur Random Sodium 65 mmol/L 09/01/18 13:59 Urine Collection Time 24 hours 09/01/18 13:28 Urine Total Volume 1700 ml 09/01/18 13:28 Urine Creatinine 64.0 mg/dl (28.0-217.0) 09/01/18 10:45 Creat Clearance 24 Hr 52 ml/min (88.00-128.00) L 09/01/18 10:45 Microalb/Creat Ratio 253.4 mg/g creat (0.0-30.0) H 09/01/18 10:45 U Tot Protein 24h, Calc 1785.0 mg/24 hr (0-165) H 09/01/18 13:28 Body Surface Area 0.28 09/01/18 10:45 Blood Type O NEGATIVE 09/02/18 05:20 Antibody Screen NEGATIVE 09/02/18 05:20 Crossmatch See Detail 09/02/18 05:20 - Physical Exam Vitals and I&O: Vital Signs Temp 97.8 F 09/02/18 04:00 Pulse 89 09/02/18 07:15 Resp 18 09/02/18 07:15 BP 119/65 09/02/18 06:49 Pulse Ox 97 09/02/18 07:15 Intake & Output 09/01/18 09/02/18 09/02/18 18:59 06:59 18:59 Intake Total 900 1196 Output Total 900 950 Balance 0 246 Weight (lbs) 150 lb 152 lb 8 oz Intake: Intake, IV Amount 50 1096 D5-0.45NS 1,000 ml @ 80 996 mls/hr IV .[id number] [facility] Rx #:[id number] Piperacillin Sodium/ 50 100 Tazobact 2.25 gm In Sodium Chloride 0.9% 50 ml @ 100 mls/hr IV Q8HR [facility] Rx#:[id number] Oral 850 100 Output: Urine 900 950 Other: Weight Source Bedscale Bedscale Active Medications: Current Medications Acetaminophen (Tylenol) 650 mg PO Q4H PRN PRN Reason: Pain Or Fever above 101 Stop: 10/29/18 22:03 Albuterol Sulfate (Albuterol 2.5mg/3ml Neb Ud) 2.5 mg HHN Q2HRT PRN PRN Reason: Shortness of Breath or Wheeze Stop: 10/29/18 22:03 Amantadine HCl (Symmetrel) 100 mg PO QOD LENA Stop: 10/31/18 08:59 Last Admin: 09/01/18 08:05 Dose: 100 mg Diphenhydramine HCl (Benadryl) 25 mg PO QID PRN PRN Reason: Itching Stop: 10/30/18 12:23 Last Admin: 09/01/18 02:32 Dose: 25 mg Diphenhydramine HCl (Benadryl 50 Mg/Ml) 25 mg IVP Q6HR PRN PRN Reason: Itching Stop: 10/31/18 07:51 Last Admin: 09/02/18 11:30 Dose: 25 mg Epoetin Trey (Epogen) 5,000 units SUBQ TuThSa@1400 [facility] Stop: 10/31/18 13:59 Last Admin: 09/01/18 14:03 Dose: 5,000 units Ferrous Sulfate (Iron) 325 mg PO DAILY LENA Stop: 10/30/18 08:59 Last Admin: 09/02/18 10:19 Dose: 325 mg Heparin Sodium (Porcine) (Heparin) 5,000 units SUBQ Q12HR LENA Stop: 10/30/18 08:59 Last Admin: 09/02/18 08:50 Dose: 5,000 units Hydrocortisone (Hydrocortisone 1%) 1 appl TP BID PRN PRN Reason: Itching Stop: 10/30/18 16:59 Piperacillin Sod/Tazobactam (Sod 2.25 gm/ Sodium Chloride) 50 mls @ 100 mls/hr IV Q8HR LENA Stop: 10/31/18 12:59 Last Infusion: 09/02/18 05:15 Dose: Infused Dextrose/Sodium Chloride (D5-0.45ns) 1,000 mls @ 80 mls/hr IV .[id number] LENA Stop: 10/31/18 12:59 Last Admin: 09/02/18 01:37 Dose: 80 mls/hr Ipratropium [place] (Atrovent Neb 0.5mg/2.5ml) 0.5 mg HHN Q2HRT PRN PRN Reason: Shortness of Breath or Wheeze Stop: 10/29/18 22:03 Lactulose (Cephulac) 30 gm PO DAILY [facility] Stop: 10/30/18 14:59 Last Admin: 09/02/18 08:50 Dose: 30 gm Levetiracetam (Keppra) 500 mg PO BID LENA Stop: 10/30/18 08:59 Last Admin: 09/02/18 08:50 Dose: 500 mg Lorazepam (Ativan) 0.5 mg IVP Q4HR PRN; Protocol PRN Reason: Agitation Stop: 10/31/18 14:15 Last Admin: 09/02/18 12:47 Dose: 0.5 mg Memantine (Namenda) 5 mg PO DAILY [facility] Stop: 10/30/18 08:59 Last Admin: 09/02/18 08:50 Dose: 5 mg Miscellaneous (Vte Chemical Prophylaxis Screen/Icu Transfer) 1 ea PRN PRN PRN Reason: PROTOCOL Stop: 10/30/18 08:14 Miscellaneous (Clinical Monitoring) 1 ea MC PRN PRN PRN Reason: RENAL Stop: 11/01/18 07:42 Multivitamins/Vitamin C (Theragran) 1 tab PO DAILY LENA Stop: 10/30/18 08:59 Last Admin: 09/02/18 08:50 Dose: 1 tab Mupirocin (Bactroban Oint) 1 appl TP BID LENA Stop: 09/06/18 16:59 Last Admin: 09/02/18 10:20 Dose: 1 appl Ondansetron HCl (Zofran) 4 mg IV Q8H PRN PRN Reason: Nausea / Vomiting Stop: 10/29/18 22:03 Last Admin: 08/31/18 16:30 Dose: 4 mg Permethrin (Elimite 5% Cream) 1 appl TP X1 ONE Stop: 09/02/18 12:44 Sevelamer Carbonate (Renvela) 800 mg PO TIDWM LENA Stop: 11/01/18 16:59 Sodium Bicarbonate (Sodium Bicarb) 100 meq IVP X1 ONE Stop: 09/02/18 12:43 General: weak, alert HEENT: NC/AT, PERRLA Neck: Supple Lungs: CTAB Cardiovascular: RRR, Normal S1, Normal S2 Abdomen: soft, non-tender, non-distended, positive bowel sound Neurological: alert Internal Medicine Assmt/Plan - Assessment Assessment: acute uti acute renal failure secondary to severe dehydration anemia leukocytosis mild protein calorie malnutrition htn cad dyslipidemia gerd dementia epilepsy - Plan Plan: transfuse 2 units psych/gi consult follow up labs in am continue ivf for hydration continue iv rocephin continue current plan of care Nutritional Asmnt/Malnutr-PDOC - Dietary Evaluation Malnutrition Findings (Please click <Entered> for more info): Nutritional Asmnt/Malnutrition Start: 08/31/18 13: 28 Text: Status: Complete Freq: Protocol: Document 08/31/18 13:28 KRISTAN (Rec: 08/31/18 13:50 KRISTAN [email or web address]) Nutritional Asmnt/Malnutrition Patient General Information Nutritional Screening High Risk Consult Diagnosis acute renal failure Pertinent Medical Hx/Surgical Hx HTN, CAD, hyslipidemia, PUD/ GERD, dementia, Epilepsy, anemia, IBS, anxiety Subjective Information Pt seen resting in bed at time of visit, family at bedside talking with MD. Renal diet started from lunch. Consult received for BS 259. Current Diet Order/ Nutrition Support renal Pertinent Medications D5-0.45ns, iron, theragran Pertinent Labs 08/31 K 4.7 (improved), Cl 110 , BUN 137, Cr 10.8, glucose 202, Phos 9.2, Alb 3.4 08/30 K 6.1, BUN 140, Cr 11.1, glucose 159, alb 3.9 Nutritional Hx/Data Height 5 ft 2 in Height (Calculated Centimeters) 157.5 Current Weight (lbs) 148 lb Weight (Calculated Kilograms) 67.1 Weight (Calculated Grams) 25463.7 [place] Body Weight 120 Body Mass Index (BMI) 27.1 Weight Status Overweight GI Symptoms GI Symptoms None Last BM not indicated Difficult in: None Skin Integrity/Comment: scar to left face, rash to left leg, abdomen, right/left upper arm Estimated Nutritional Goals BEE in Kcals: Using Current wt Calories/Kcals/Kg 23-27 Kcals Calculated 0514-1249 Protein: Using Current wt Protein g/k.7 Protein Calculated 47 monitor renal labs Fluid: ml per MD Nutritional Problem 1. Problem Problem altered nutrition related labs Etiology acute renal failure Signs/Symptoms: BUN 137-140, Cr 10.8-11.1, glucose 159-202, Phos 9.2 Malnutrition Alert Is there a minimum of two criteria No selected? Query Text:Check all the applicable criteria. A minimum of two criteria are recommended for diagnosis of either severe or non-severe malnutrition. Intervention/Recommendation Comments 1. Continue with renal diet as ordered. Limit protein intake to 50g per day. Modify diet to renal 50g per protocol. 2. Monitor PO intake, wt, labs and skin integrity 3. F/U as high risk in 2-3 days, 09/02-09/03 Expected Outcomes/Goals Expected Outcomes/Goals 1. PO intake to meet at least 75% of nutritional needs. 2. Wt stability, skin to remain intact, labs to approach WNL.
--- NOTE | 2018-09-02 13:35 | General Progress Note ---
Subjective - Review of Systems Service Date: 09/02/18 Subjective: less agitation Objective - Results Result Diagrams: 09/02/18 04:50 09/02/18 04:50 Recent Labs: Laboratory Last Values WBC 11.7 Th/cmm (4.8-10.8) H 09/02/18 04:50 RBC 2.40 Mil/cmm (3.80-5.20) L 09/02/18 04:50 Hgb 7.1 gm/dL (12-16) L* 09/02/18 04:50 Hct 21.0 % (41.0-60) L 09/02/18 04:50 MCV 87.4 fl (81-100) 09/02/18 04:50 MCH 29.4 pg (27.0-31.0) 09/02/18 04:50 MCHC Differential 33.6 pg (28.0-36.0) 09/02/18 04:50 RDW 13.1 % (11.5-20.0) 09/02/18 04:50 Plt Count 342 Th/cmm (150-400) 09/02/18 04:50 MPV 6.4 fl 09/02/18 04:50 Add Manual Diff YES 09/02/18 04:50 Band Neutrophils % 0 % (0-10) 09/02/18 04:50 Neutrophils (Manual) 46 % (40-80) 09/02/18 04:50 Lymphocytes 4 % (20-50) L 09/02/18 04:50 Monocytes 2 % (2-10) 09/02/18 04:50 Eosinophils 38 % (0-5) H 09/02/18 04:50 Platelet Estimate ADEQUATE (NORMAL) 09/02/18 04:50 Morphology Comment YES 08/31/18 04:05 Eos Smear Source URINE 09/01/18 10:45 Eos Smear Total Cells NONE SEEN (NONE SEEN) 09/01/18 10:45 Specimen Source Arterial 08/31/18 14:33 Sample Site RB 08/31/18 14:33 pH 7.47 (7.35-7.45) H 08/31/18 14:33 pCO2 28.0 mmHg (35.0-45.0) L 08/31/18 14:33 pO2 84.0 mmHg (80.0-100.0) 08/31/18 14:33 HCO3 -2.2 mEq/L (20.0-26.0) L 08/31/18 14:33 Base Excess 23.2 mEq/L (-3.0-3.0) H 08/31/18 14:33 O2 Saturation 97.0 % (92.0-100.0) 08/31/18 14:33 Williams Test NA 08/31/18 14:33 Vent Rate NA 08/31/18 14:33 Inspired O2 21 08/31/18 14:33 Tidal Volume NA 08/31/18 14:33 PEEP NA 08/31/18 14:33 Pressure (ins/psv/peep) NA 08/31/18 14:33 Critical Value SH 08/31/18 14:33 Sodium 139 mEq/L (136-145) 09/02/18 04:50 Potassium 3.7 mEq/L (3.5-5.1) 09/02/18 04:50 Chloride 107 mEq/L (98-107) 09/02/18 04:50 Carbon Dioxide 18.9 mEq/L (21.0-31.0) L 09/02/18 04:50 Anion Gap 16.8 (7.0-16.0) H 09/02/18 04:50 BUN 84 mg/dL (7-25) H* 09/02/18 04:50 Creatinine 7.9 mg/dL (0.6-1.2) H* 09/02/18 04:50 Est GFR ( Amer) TNP 09/02/18 04:50 Est GFR (Non-Af Amer) TNP 09/02/18 04:50 BUN/Creatinine Ratio 10.6 09/02/18 04:50 Glucose 124 mg/dL (70-105) H 09/02/18 04:50 POC Glucose 259 MG/DL (70 - 105) H 08/30/18 22:35 Whole Bld Lactic Acid 1.09 mmol/L (0.60-1.99) 08/30/18 20:35 Uric Acid 9.6 mg/dL (2.3-6.6) H 09/01/18 04:25 Calcium 8.2 mg/dL (8.6-10.3) L 09/02/18 04:50 Phosphorus 9.2 mg/dL (2.5-5.0) H* 08/31/18 04:05 Magnesium 1.5 mg/dL (1.9-2.7) L 09/02/18 04:50 Iron 49 ug/dL (27-139) 09/01/18 04:25 TIBC 239 ug/dL (250-450) L 09/01/18 04:25 Iron Saturation 21 % (15-55) 09/01/18 04:25 Unsaturated IBC 190 ug/dL (118-369) 09/01/18 04:25 Ferritin 930 ng/mL (15-150) H 09/01/18 04:25 Total Bilirubin 1.0 mg/dL (0.3-1.0) 09/02/18 04:50 AST 65 U/L (13-39) H 09/02/18 04:50 ALT 111 U/L (7-52) H 09/02/18 04:50 Alkaline Phosphatase 631 U/L (34-104) H 09/02/18 04:50 Ammonia 83 umol/L (16-53) H 08/30/18 20:35 Troponin I 0.05 ng/mL (0.01-0.05) 08/30/18 20:35 B-Natriuretic Peptide 42.8 pg/mL (5.0-100.0) 09/02/18 04:50 Total Protein 5.6 gm/dL (6.0-8.3) L 09/02/18 04:50 Albumin 2.8 gm/dL (3.7-5.3) L 09/02/18 04:50 Globulin 2.8 gm/dL 09/02/18 04:50 Albumin/Globulin Ratio 1.0 (1.0-1.8) 09/02/18 04:50 Lipase 137 U/L (11-82) H 08/30/18 20:35 Vitamin B12 1615 pg/mL (232-1245) H 08/31/18 04:05 Folic Acid >20.0 ng/mL (>3.0) 08/31/18 04:05 TSH 2.57 uIU/ml (0.34-5.60) 08/30/18 20:35 Urine Source CATH 08/30/18 21:05 Urine Color YELLOW 08/30/18 21:05 Urine Clarity CLOUDY (CLEAR) H 08/30/18 21:05 Urine pH 6.0 (4.6 - 8.0) 08/30/18 21:05 Ur Specific [place] 1.015 (1.005-1.030) 08/30/18 21:05 Urine Protein 30 mg/dL (NEGATIVE) H 08/30/18 21:05 Urine Glucose (UA) 100 mg/dL (NEGATIVE) H 08/30/18 21:05 Urine Ketones NEGATIVE mg/dL (NEGATIVE) 08/30/18 21:05 Urine Blood MODERATE (NEGATIVE) H 08/30/18 21:05 Urine Nitrate POSITIVE (NEGATIVE) H 08/30/18 21:05 Urine Bilirubin NEGATIVE (NEGATIVE) 08/30/18 21:05 Urine Urobilinogen 0.2 E.U./dL (0.2 - 1.0) 08/30/18 21:05 Ur Leukocyte Esterase MODERATE (NEGATIVE) H 08/30/18 21:05 Urine RBC 2-5 /hpf (0-5) 08/30/18 21:05 Urine WBC 10-25 /hpf (0-5) H 08/30/18 21:05 Ur Epithelial Cells FEW /lpf (FEW) 08/30/18 21:05 Urine Bacteria 4+ /hpf (NONE SEEN) H 08/30/18 21:05 U Random Total Protein 105.0 mg/dL 09/01/18 13:28 Ur Random Sodium 65 mmol/L 09/01/18 13:59 Urine Collection Time 24 hours 09/01/18 13:28 Urine Total Volume 1700 ml 09/01/18 13:28 Urine Creatinine 64.0 mg/dl (28.0-217.0) 09/01/18 10:45 Creat Clearance 24 Hr 52 ml/min (88.00-128.00) L 09/01/18 10:45 Microalb/Creat Ratio 253.4 mg/g creat (0.0-30.0) H 09/01/18 10:45 U Tot Protein 24h, Calc 1785.0 mg/24 hr (0-165) H 09/01/18 13:28 Body Surface Area 0.28 09/01/18 10:45 Blood Type O NEGATIVE 09/02/18 05:20 Antibody Screen NEGATIVE 09/02/18 05:20 Crossmatch See Detail 09/02/18 05:20 - Physical Exam Vitals and I&O: Vital Signs Temp 97.8 F 09/02/18 04:00 Pulse 89 09/02/18 07:15 Resp 18 09/02/18 07:15 BP 119/65 09/02/18 06:49 Pulse Ox 97 09/02/18 07:15 Intake & Output 09/01/18 09/02/18 09/02/18 18:59 06:59 18:59 Intake Total 900 1196 Output Total 900 950 Balance 0 246 Weight (lbs) 68.039 kg 69.173 kg Intake: Intake, IV Amount 50 1096 D5-0.45NS 1,000 ml @ 80 996 mls/hr IV .[id number] [facility] Rx #:[id number] Piperacillin Sodium/ 50 100 Tazobact 2.25 gm In Sodium Chloride 0.9% 50 ml @ 100 mls/hr IV Q8HR [facility] Rx#:[id number] Oral 850 100 Output: Urine 900 950 Other: Weight Source Bedscale Bedscale Active Medications: Current Medications Acetaminophen (Tylenol) 650 mg PO Q4H PRN PRN Reason: Pain Or Fever above 101 Stop: 10/29/18 22:03 Albuterol Sulfate (Albuterol 2.5mg/3ml Neb Ud) 2.5 mg HHN Q2HRT PRN PRN Reason: Shortness of Breath or Wheeze Stop: 10/29/18 22:03 Amantadine HCl (Symmetrel) 100 mg PO QOD [facility] Stop: 10/31/18 08:59 Last Admin: 09/01/18 08:05 Dose: 100 mg Diphenhydramine HCl (Benadryl) 25 mg PO QID PRN PRN Reason: Itching Stop: 10/30/18 12:23 Last Admin: 09/01/18 02:32 Dose: 25 mg Diphenhydramine HCl (Benadryl 50 Mg/Ml) 25 mg IVP Q6HR PRN PRN Reason: Itching Stop: 10/31/18 07:51 Last Admin: 09/02/18 11:30 Dose: 25 mg Epoetin Trey (Epogen) 5,000 units SUBQ TuThSa@1400 [facility] Stop: 10/31/18 13:59 Last Admin: 09/01/18 14:03 Dose: 5,000 units Ferrous Sulfate (Iron) 325 mg PO DAILY [facility] Stop: 10/30/18 08:59 Last Admin: 09/02/18 10:19 Dose: 325 mg Heparin Sodium (Porcine) (Heparin) 5,000 units SUBQ Q12HR [facility] Stop: 10/30/18 08:59 Last Admin: 09/02/18 08:50 Dose: 5,000 units Hydrocortisone (Hydrocortisone 1%) 1 appl TP BID PRN PRN Reason: Itching Stop: 10/30/18 16:59 Piperacillin Sod/Tazobactam (Sod 2.25 gm/ Sodium Chloride) 50 mls @ 100 mls/hr IV Q8HR [facility] Stop: 10/31/18 12:59 Last Infusion: 09/02/18 05:15 Dose: Infused Dextrose/Sodium Chloride (D5-0.45ns) 1,000 mls @ 80 mls/hr IV .[id number] [facility] Stop: 10/31/18 12:59 Last Admin: 09/02/18 01:37 Dose: 80 mls/hr Ipratropium [place] (Atrovent Neb 0.5mg/2.5ml) 0.5 mg HHN Q2HRT PRN PRN Reason: Shortness of Breath or Wheeze Stop: 10/29/18 22:03 Lactulose (Cephulac) 30 gm PO DAILY [facility] Stop: 10/30/18 14:59 Last Admin: 09/02/18 08:50 Dose: 30 gm Levetiracetam (Keppra) 500 mg PO BID [facility] Stop: 10/30/18 08:59 Last Admin: 09/02/18 08:50 Dose: 500 mg Lorazepam (Ativan) 0.5 mg IVP Q4HR PRN; Protocol PRN Reason: Agitation Stop: 10/31/18 14:15 Last Admin: 09/02/18 12:47 Dose: 0.5 mg Memantine (Namenda) 5 mg PO DAILY [facility] Stop: 10/30/18 08:59 Last Admin: 09/02/18 08:50 Dose: 5 mg Miscellaneous (Vte Chemical Prophylaxis Screen/Icu Transfer) 1 ea PRN PRN PRN Reason: PROTOCOL Stop: 10/30/18 08:14 Miscellaneous (Clinical Monitoring) 1 ea PRN PRN PRN Reason: RENAL Stop: 11/01/18 07:42 Multivitamins/Vitamin C (Theragran) 1 tab PO DAILY [facility] Stop: 10/30/18 08:59 Last Admin: 09/02/18 08:50 Dose: 1 tab Mupirocin (Bactroban Oint) 1 appl TP BID [facility] Stop: 09/06/18 16:59 Last Admin: 09/02/18 10:20 Dose: 1 appl Ondansetron HCl (Zofran) 4 mg IV Q8H PRN PRN Reason: Nausea / Vomiting Stop: 10/29/18 22:03 Last Admin: 08/31/18 16:30 Dose: 4 mg Permethrin (Elimite 5% Cream) 1 appl TP X1 ONE Stop: 09/02/18 20:01 Sevelamer Carbonate (Renvela) 800 mg PO TIDWM [facility] Stop: 11/01/18 16:59 General: No acute distress HEENT: Atraumatic, Mucous membr. moist/pink Neck: Supple, +2 carotid pulse wo bruit Cardiovascular: Regular rate, Normal S1, Normal S2 Lungs: Clear to auscultation Abdomen: Bowel sounds, Soft Extremities: no Edema Neurological: Sensation intact Skin: no Rash Psych/Mental Status: Mood NL Assessment/Plan - Assessment Assessment: MARIA ESTHER ALOC Met/Toxic Enceph Sepsis 2/2 Cx E. coli UTI Shock Liver AG Met Acid Epilepsy Anemia of CD - Plan Plan: Lab - Result Diagrams 09/01/18 04:25 09/01/18 10:45 Current Medications Acetaminophen (Tylenol) 650 mg PO Q4H PRN PRN Reason: Pain Or Fever above 101 Stop: 10/29/18 22:03 Albuterol Sulfate (Albuterol 2.5mg/3ml Neb Ud) 2.5 mg HHN Q2HRT PRN PRN Reason: Shortness of Breath or Wheeze Stop: 10/29/18 22:03 Amantadine HCl (Symmetrel) 100 mg PO QOD [facility] Stop: 10/31/18 08:59 Last Admin: 09/01/18 08:05 Dose: 100 mg Diphenhydramine HCl (Benadryl) 25 mg PO QID PRN PRN Reason: Itching Stop: 10/30/18 12:23 Last Admin: 09/01/18 02:32 Dose: 25 mg Diphenhydramine HCl (Benadryl 50 Mg/Ml) 25 mg IVP Q6HR PRN PRN Reason: Itching Stop: 10/31/18 07:51 Last Admin: 09/01/18 13:10 Dose: 25 mg Epoetin Trey (Epogen) 5,000 units SUBQ TuThSa@1400 [facility] Stop: 10/31/18 13:59 Ferrous Sulfate (Iron) 325 mg PO DAILY [facility] Stop: 10/30/18 08:59 Last Admin: 09/01/18 08:05 Dose: 325 mg Heparin Sodium (Porcine) (Heparin) 5,000 units SUBQ Q12HR [facility] Stop: 10/30/18 08:59 Last Admin: 09/01/18 08:06 Dose: 5,000 units Hydrocortisone (Hydrocortisone 1%) 1 appl TP BID PRN PRN Reason: Itching Stop: 10/30/18 16:59 Piperacillin Sod/Tazobactam (Sod 2.25 gm/ Sodium Chloride) 50 mls @ 100 mls/hr IV Q8HR [facility] Stop: 10/31/18 12:59 Dextrose/Sodium Chloride (D5-0.45ns) 1,000 mls @ 80 mls/hr IV .[id number] [facility] Stop: 10/31/18 12:59 Last Admin: 09/01/18 13:10 Dose: 80 mls/hr Ipratropium [place] (Atrovent Neb 0.5mg/2.5ml) 0.5 mg HHN Q2HRT PRN PRN Reason: Shortness of Breath or Wheeze Stop: 10/29/18 22:03 Lactulose (Cephulac) 30 gm PO DAILY [facility] Stop: 10/30/18 14:59 Last Admin: 09/01/18 08:05 Dose: 30 gm Levetiracetam (Keppra) 500 mg PO BID [facility] Stop: 10/30/18 08:59 Last Admin: 09/01/18 08:05 Dose: 500 mg Memantine (Namenda) 5 mg PO DAILY [facility] Stop: 10/30/18 08:59 Last Admin: 09/01/18 08:05 Dose: 5 mg Miscellaneous (Vte Chemical Prophylaxis Screen/Icu Transfer) 1 ea MC PRN PRN PRN Reason: PROTOCOL Stop: 10/30/18 08:14 Multivitamins/Vitamin C (Theragran) 1 tab PO DAILY [facility] Stop: 10/30/18 08:59 Last Admin: 09/01/18 08:05 Dose: 1 tab Mupirocin (Bactroban Oint) 1 appl TP BID [facility] Stop: 09/06/18 16:59 Ondansetron HCl (Zofran) 4 mg IV Q8H PRN PRN Reason: Nausea / Vomiting Stop: 10/29/18 22:03 Last Admin: 08/31/18 16:30 Dose: 4 mg Lab - Result Diagrams 09/02/18 04:50 09/02/18 04:50 Kidney fnc gradually improving w/ BUN/CR of 84/7.9 now nonoliguric continue IVF, encourage po fluid intake maintain Zosyn f/u electrolytes, cbc FE Na 5.77% suggestive of intrinsic renal failure Nutritional Asmnt/Malnutr-PDOC - Dietary Evaluation Malnutrition Findings (Please click <Entered> for more info): Nutritional Asmnt/Malnutrition Start: 08/31/18 13: 28 Text: Status: Complete Freq: Protocol: Document 08/31/18 13:28 KRISTAN (Rec: 08/31/18 13:50 [email or web address] [id number]) Nutritional Asmnt/Malnutrition Patient General Information Nutritional Screening High Risk Consult Diagnosis acute renal failure Pertinent Medical Hx/Surgical Hx HTN, CAD, hyslipidemia, PUD/ GERD, dementia, Epilepsy, anemia, IBS, anxiety Subjective Information Pt seen resting in bed at time of visit, family at bedside talking with MD. Renal diet started from lunch. Consult received for BS 259. Current Diet Order/ Nutrition Support renal Pertinent Medications D5-0.45ns, iron, theragran Pertinent Labs 08/31 K 4.7 (improved), Cl 110 , BUN 137, Cr 10.8, glucose 202, Phos 9.2, Alb 3.4 08/30 K 6.1, BUN 140, Cr 11.1, glucose 159, alb 3.9 Nutritional Hx/Data Height 1.57 m Height (Calculated Centimeters) 157.5 Current Weight (lbs) 67.132 kg Weight (Calculated Kilograms) 67.1 Weight (Calculated Grams) 36971.7 [place] Body Weight 120 Body Mass Index (BMI) 27.1 Weight Status Overweight GI Symptoms GI Symptoms None Last BM not indicated Difficult in: None Skin Integrity/Comment: scar to left face, rash to left leg, abdomen, right/left upper arm Estimated Nutritional Goals BEE in Kcals: Using Current wt Calories/Kcals/Kg 23-27 Kcals Calculated 9985-3081 Protein: Using Current wt Protein g/k.7 Protein Calculated 47 monitor renal labs Fluid: ml per MD Nutritional Problem 1. Problem Problem altered nutrition related labs Etiology acute renal failure Signs/Symptoms: BUN 137-140, Cr 10.8-11.1, glucose 159-202, Phos 9.2 Malnutrition Alert Is there a minimum of two criteria No selected? Query Text:Check all the applicable criteria. A minimum of two criteria are recommended for diagnosis of either severe or non-severe malnutrition. Intervention/Recommendation Comments 1. Continue with renal diet as ordered. Limit protein intake to 50g per day. Modify diet to renal 50g per protocol. 2. Monitor PO intake, wt, labs and skin integrity 3. F/U as high risk in 2-3 days, 09/02-09/03 Expected Outcomes/Goals Expected Outcomes/Goals 1. PO intake to meet at least 75% of nutritional needs. 2. Wt stability, skin to remain intact, labs to approach WNL.
--- NOTE | 2018-09-02 19:38 | Consultation ---
DATE OF CONSULTATION: 09/02/2018 REASON FOR CONSULTATION: Severe anemia. HISTORY OF PRESENT ILLNESS: This consult was obtained through the courtesy of Dr. Basilio for this 78-year-old, possibly 82 also. The family one is 38, one is 42, who was admitted for weakness, dehydration, found to have UTI, but while in the hospital, she has significant drop of hemoglobin. GI consult was called in for further evaluation. The patient with dementia, unable to provide any history. PAST MEDICAL HISTORY: Hypertension, coronary artery disease, status post stent, hyperlipidemia, GERD, dementia, anemia, dysphagia, IBS. PAST SURGICAL HISTORY: She had cholecystectomy and she had cardiac stent twice. The stent was about 5-6 years ago with a cholecystectomy was many years ago. SOCIAL HISTORY: Nonsmoker, alcoholic, IV drug abuser. FAMILY HISTORY: Noncontributory. ALLERGIES: No known drug allergy. MEDICATIONS: The patient is on Tylenol, albuterol, Symmetrel, Benadryl, Epogen, iron, hydrocortisone, Atrovent, lactulose, Keppra, Ativan, Namenda, multivitamin, Bactroban, Zofran, permethrin cream, Zosyn, Renvela. REVIEW OF SYSTEMS: Unobtainable. PHYSICAL EXAMINATION: GENERAL: The patient is awake, oriented to self. VITAL SIGNS: Blood pressure is 109/69, heart rate is 85, respiratory rate is 16, temperature is 98.6. HEAD AND NECK: Pupils reactive to light. Extraocular muscles could not be tested. Oral cavity, no lesion. NECK: Supple. CHEST: Good air entry. LUNGS: Clear to auscultation. CARDIOVASCULAR: Regular rate and rhythm. No murmur or gallop. ABDOMEN: Soft, positive bowel sounds. Abdomen was not tender. There is some rash in the abdomen. EXTREMITIES: Lower extremities, no edema. CENTRAL NERVOUS SYSTEM: Grossly nonfocal. The patient is moving 4 extremities without problem. LABORATORY DATA: Hemoglobin 7.1 with 8.8 on presentation, then dropped to 7.9, then 7.6 and now 7.1. Normal MCV and RDW. Platelets were normal as well and white count 11.7 down from 15.1. BUN and creatinine are 84 and 7.9, AST 65, ALT 111, alkaline phosphatase 631. The patient had an ultrasound of the abdomen, which showed limited exam, suboptimal evaluation of the lower poles of the kidneys, common bile duct and gallbladder were not visualized, but it seems patient had surgery before for that. IMPRESSION: A 78 or 82-year-old with anemia and abnormal liver enzymes. 1. Anemia, rule out gastrointestinal blood loss due to peptic ulcer disease, upper gastrointestinal malignancy or erosive esophagitis, etc. Rule out also colon cancer, etc. Recommendations is to monitor labs. Transfuse as needed. EGD and colonoscopy. The patient is already at this time, family would like to wait a few days until they get an opinion of the other family members, until they come back from [place] and given that there is no active bleeding. We will wait meanwhile as stated above, we will do PPI. We will check stool for occult blood and further recommendations to follow. 2. Abnormal liver enzymes, could be due to sepsis, could be due to retained common bile duct stones, even though less likely. At this time, we will recheck labs in the morning. If it is improving, continue to monitor, then later on MRCP, but on the other hand, if labs are getting worse and MRCP now, which have been the patient has to be moved to another facility. Other medical concern is hypertension, dementia, etc., as per Dr. Basilio. Thank you Dr. Basilio for allowing me to participate in the care of the patient. If you have any further questions, please let me know. JOB# [id number]
[2018-09-03 05:23] LABS: MEAN CELL VOLUME 86.2 fl (81-100); MEAN CORPUSCULAR HEMOGLOBIN 29.3 pg (27.0-31.0); MEAN CORPUSCULAR HGB CONC 34.1 pg (28.0-36.0); MEAN PLATELET VOLUME 7.1 fl; PLATELET COUNT 280 Th/cmm (150-400); RED CELL DISTRIBUTION WIDTH 13.9 % (11.5-20.0); WHITE BLOOD COUNT 12.6 Th/cmm (4.8-10.8)
[2018-09-03 05:25] LABS: INR 0.99 (0.5-1.4); PROTHROMBIN TIME (TEST) 10.3 SECONDS (9.5-11.5)
[2018-09-03 05:29] LABS: HEMATOCRIT 30.1 % (41.0-60); HEMOGLOBIN 10.3 gm/dL (12-16)
[2018-09-03 05:39] LABS: ANION GAP 18.5 (7.0-16.0); BUN - UREA NITROGEN 70 mg/dL (7-25); CALCIUM SERUM 8.8 mg/dL (8.6-10.3); CARBON DIOXIDE 20.2 mEq/L (21.0-31.0); CHLORIDE 110 mEq/L (98-107); GLUCOSE 106 mg/dL (70-105); LIPASE 23 U/L (11-82); POTASSIUM SERUM 3.7 mEq/L (3.5-5.1); SODIUM SERUM 145 mEq/L (136-145)
[2018-09-03 05:56] LABS: CREATININE - SERUM 7.1 mg/dL (0.6-1.2)
[2018-09-03 06:05] LABS: BAND NEUTROPHILE 3 % (0-10); EOSINOPHIL 34 % (0-5); LYMPHOCYTE 14 % (20-50); MONOCYTE 2 % (2-10); NEUTROPHILS 47 % (40-80); PLATELET ESTIMATE ADEQUATE (NORMAL)
[2018-09-03] MEDS: Lactulose 10 Gm/15 mL 30mL UDC PO SCH (08:10)
[2018-09-03] MEDS: Ferrous Sulfate 325 MG TAB PO SCH (08:10)
[2018-09-03] MEDS: Multivitamin Tab PO SCH (08:11)
[2018-09-03] MEDS: D5-0.45NS 1,000 ML IV SCH (08:28)
[2018-09-03] MEDS ORDERED: Probiotic Screen MC PRN (11:00)
--- NOTE | 2018-09-03 13:09 | GI Progress Note ---
Subjective - Review of Systems Service Date: 09/03/18 Events since last encounter: no events Subjective: No active complaint but confused Objective - Results Result Diagrams: 09/03/18 04:40 09/03/18 04:40 Recent Labs: Laboratory Last Values WBC 12.6 Th/cmm (4.8-10.8) H 09/03/18 04:40 RBC 3.50 Mil/cmm (3.80-5.20) L 09/03/18 04:40 Hgb 10.3 gm/dL (12-16) L D 09/03/18 04:40 Hct 30.1 % (41.0-60) L D 09/03/18 04:40 MCV 86.2 fl (81-100) 09/03/18 04:40 MCH 29.3 pg (27.0-31.0) 09/03/18 04:40 MCHC Differential 34.1 pg (28.0-36.0) 09/03/18 04:40 RDW 13.9 % (11.5-20.0) 09/03/18 04:40 Plt Count 280 Th/cmm (150-400) 09/03/18 04:40 MPV 7.1 fl 09/03/18 04:40 Add Manual Diff YES 09/03/18 04:40 Band Neutrophils % 3 % (0-10) 09/03/18 04:40 Neutrophils (Manual) 47 % (40-80) 09/03/18 04:40 Lymphocytes 14 % (20-50) L 09/03/18 04:40 Monocytes 2 % (2-10) 09/03/18 04:40 Eosinophils 34 % (0-5) H 09/03/18 04:40 Platelet Estimate ADEQUATE (NORMAL) 09/03/18 04:40 Morphology Comment YES 08/31/18 04:05 Eos Smear Source URINE 09/01/18 10:45 Eos Smear Total Cells NONE SEEN (NONE SEEN) 09/01/18 10:45 PT 10.3 SECONDS (9.5-11.5) 09/03/18 04:40 INR 0.99 (0.5-1.4) 09/03/18 04:40 PTT (Actin FS) 25.9 SECONDS (26.0-38.0) L 09/03/18 04:40 Specimen Source Arterial 08/31/18 14:33 Sample Site RB 08/31/18 14:33 pH 7.47 (7.35-7.45) H 08/31/18 14:33 pCO2 28.0 mmHg (35.0-45.0) L 08/31/18 14:33 pO2 84.0 mmHg (80.0-100.0) 08/31/18 14:33 HCO3 -2.2 mEq/L (20.0-26.0) L 08/31/18 14:33 Base Excess 23.2 mEq/L (-3.0-3.0) H 08/31/18 14:33 O2 Saturation 97.0 % (92.0-100.0) 08/31/18 14:33 Williams Test NA 08/31/18 14:33 Vent Rate NA 08/31/18 14:33 Inspired O2 21 08/31/18 14:33 Tidal Volume NA 08/31/18 14:33 PEEP NA 08/31/18 14:33 Pressure (ins/psv/peep) NA 08/31/18 14:33 Critical Value SH 08/31/18 14:33 Sodium 145 mEq/L (136-145) 09/03/18 04:40 Potassium 3.7 mEq/L (3.5-5.1) 09/03/18 04:40 Chloride 110 mEq/L (98-107) H 09/03/18 04:40 Carbon Dioxide 20.2 mEq/L (21.0-31.0) L 09/03/18 04:40 Anion Gap 18.5 (7.0-16.0) H 09/03/18 04:40 BUN 70 mg/dL (7-25) H 09/03/18 04:40 Creatinine 7.1 mg/dL (0.6-1.2) H* 09/03/18 04:40 Est GFR ( Amer) TNP 09/03/18 04:40 Est GFR (Non-Af Amer) TNP 09/03/18 04:40 BUN/Creatinine Ratio 9.9 09/03/18 04:40 Glucose 106 mg/dL (70-105) H 09/03/18 04:40 POC Glucose 259 MG/DL (70 - 105) H 08/30/18 22:35 Whole Bld Lactic Acid 1.09 mmol/L (0.60-1.99) 08/30/18 20:35 Uric Acid 9.6 mg/dL (2.3-6.6) H 09/01/18 04:25 Calcium 8.8 mg/dL (8.6-10.3) 09/03/18 04:40 Phosphorus 9.2 mg/dL (2.5-5.0) H* 08/31/18 04:05 Magnesium 1.5 mg/dL (1.9-2.7) L 09/02/18 04:50 Iron 49 ug/dL (27-139) 09/01/18 04:25 TIBC 239 ug/dL (250-450) L 09/01/18 04:25 Iron Saturation 21 % (15-55) 09/01/18 04:25 Unsaturated IBC 190 ug/dL (118-369) 09/01/18 04:25 Ferritin 930 ng/mL (15-150) H 09/01/18 04:25 Total Bilirubin 1.0 mg/dL (0.3-1.0) 09/02/18 04:50 AST 65 U/L (13-39) H 09/02/18 04:50 ALT 111 U/L (7-52) H 09/02/18 04:50 Alkaline Phosphatase 631 U/L (34-104) H 09/02/18 04:50 Ammonia 83 umol/L (16-53) H 08/30/18 20:35 Troponin I 0.05 ng/mL (0.01-0.05) 08/30/18 20:35 B-Natriuretic Peptide 42.8 pg/mL (5.0-100.0) 09/02/18 04:50 Total Protein 5.6 gm/dL (6.0-8.3) L 09/02/18 04:50 Albumin 2.8 gm/dL (3.7-5.3) L 09/02/18 04:50 Globulin 2.8 gm/dL 09/02/18 04:50 Albumin/Globulin Ratio 1.0 (1.0-1.8) 09/02/18 04:50 Lipase 23 U/L (11-82) 09/03/18 04:40 Vitamin B12 1615 pg/mL (232-1245) H 08/31/18 04:05 Folic Acid >20.0 ng/mL (>3.0) 08/31/18 04:05 TSH 2.57 uIU/ml (0.34-5.60) 08/30/18 20:35 Urine Source CATH 08/30/18 21:05 Urine Color YELLOW 08/30/18 21:05 Urine Clarity CLOUDY (CLEAR) H 08/30/18 21:05 Urine pH 6.0 (4.6 - 8.0) 08/30/18 21:05 Ur Specific [place] 1.015 (1.005-1.030) 08/30/18 21:05 Urine Protein 30 mg/dL (NEGATIVE) H 08/30/18 21:05 Urine Glucose (UA) 100 mg/dL (NEGATIVE) H 08/30/18 21:05 Urine Ketones NEGATIVE mg/dL (NEGATIVE) 08/30/18 21:05 Urine Blood MODERATE (NEGATIVE) H 08/30/18 21:05 Urine Nitrate POSITIVE (NEGATIVE) H 08/30/18 21:05 Urine Bilirubin NEGATIVE (NEGATIVE) 08/30/18 21:05 Urine Urobilinogen 0.2 E.U./dL (0.2 - 1.0) 08/30/18 21:05 Ur Leukocyte Esterase MODERATE (NEGATIVE) H 08/30/18 21:05 Urine RBC 2-5 /hpf (0-5) 08/30/18 21:05 Urine WBC 10-25 /hpf (0-5) H 08/30/18 21:05 Ur Epithelial Cells FEW /lpf (FEW) 08/30/18 21:05 Urine Bacteria 4+ /hpf (NONE SEEN) H 08/30/18 21:05 U Random Total Protein 105.0 mg/dL 09/01/18 13:28 Ur Random Sodium 65 mmol/L 09/01/18 13:59 Urine Collection Time 24 hours 09/01/18 13:28 Urine Total Volume 1700 ml 09/01/18 13:28 Urine Creatinine 64.0 mg/dl (28.0-217.0) 09/01/18 10:45 Creat Clearance 24 Hr 52 ml/min (88.00-128.00) L 09/01/18 10:45 Microalb/Creat Ratio 253.4 mg/g creat (0.0-30.0) H 09/01/18 10:45 U Tot Protein 24h, Calc 1785.0 mg/24 hr (0-165) H 09/01/18 13:28 Body Surface Area 0.28 09/01/18 10:45 Blood Type O NEGATIVE 09/02/18 05:20 Antibody Screen NEGATIVE 09/02/18 05:20 Crossmatch See Detail 09/02/18 05:20 - Physical Exam Vitals and I&O: Vital Signs Temp 98.5 F 09/03/18 06:00 Pulse 90 09/03/18 10:37 Resp 20 09/03/18 10:37 BP 148/76 09/03/18 10:00 Pulse Ox 98 09/03/18 10:37 Intake & Output 09/02/18 09/03/18 09/03/18 18:59 06:59 18:59 Intake Total 1000 700 897.333 Output Total 3020 Balance 1000 -2320 897.333 Weight (lbs) 68.946 kg Intake: Intake, IV Amount 1000 100 897.333 D5-0.45NS 1,000 ml @ 80 1000 897.333 mls/hr IV .[id number] [facility] Rx #:[id number] Piperacillin Sodium/ 100 Tazobact 2.25 gm In Sodium Chloride 0.9% 50 ml @ 100 mls/hr IV Q8HR [facility] Rx#:[id number] Oral 100 Blood Product 500 Output: Urine 3020 Other: # Bowel Movements 0 Weight Source Bedscale Active Medications: Current Medications Acetaminophen (Tylenol) 650 mg PO Q4H PRN PRN Reason: Pain Or Fever above 101 Stop: 10/29/18 22:03 Albuterol Sulfate (Albuterol 2.5mg/3ml Neb Ud) 2.5 mg HHN Q2HRT PRN PRN Reason: Shortness of Breath or Wheeze Stop: 10/29/18 22:03 Amantadine HCl (Symmetrel) 100 mg PO QOD [facility] Stop: 10/31/18 08:59 Last Admin: 09/03/18 08:10 Dose: 100 mg Diphenhydramine HCl (Benadryl) 25 mg PO QID PRN PRN Reason: Itching Stop: 10/30/18 12:23 Last Admin: 09/02/18 19:44 Dose: 25 mg Diphenhydramine HCl (Benadryl 50 Mg/Ml) 25 mg IVP Q6HR PRN PRN Reason: Itching Stop: 10/31/18 07:51 Last Admin: 09/03/18 08:11 Dose: 25 mg Epoetin Trey (Epogen) 5,000 units SUBQ TuThSa@1400 [facility] Stop: 10/31/18 13:59 Last Admin: 09/01/18 14:03 Dose: 5,000 units Ferrous Sulfate (Iron) 325 mg PO DAILY [facility] Stop: 10/30/18 08:59 Last Admin: 09/03/18 08:10 Dose: 325 mg Heparin Sodium (Porcine) (Heparin) 5,000 units SUBQ Q12HR [facility] Stop: 10/30/18 08:59 Last Admin: 09/03/18 08:11 Dose: 5,000 units Hydrocortisone (Hydrocortisone 1%) 1 appl TP BID PRN PRN Reason: Itching Stop: 10/30/18 16:59 Piperacillin Sod/Tazobactam (Sod 2.25 gm/ Sodium Chloride) 50 mls @ 100 mls/hr IV Q8HR [facility] Stop: 10/31/18 12:59 Last Admin: 09/03/18 12:31 Dose: 100 mls/hr Dextrose/Sodium Chloride (D5-0.45ns) 1,000 mls @ 80 mls/hr IV .[id number] [facility] Stop: 10/31/18 12:59 Last Admin: 09/03/18 08:28 Dose: 80 mls/hr Ipratropium [place] (Atrovent Neb 0.5mg/2.5ml) 0.5 mg HHN Q2HRT PRN PRN Reason: Shortness of Breath or Wheeze Stop: 10/29/18 22:03 Lactobacillus Rhamnosus (Culturelle 15b) 1 each PO DAILY [facility] Stop: 11/03/18 08:59 Lactulose (Cephulac) 30 gm PO DAILY [facility] Stop: 10/30/18 14:59 Last Admin: 09/03/18 08:10 Dose: 30 gm Levetiracetam (Keppra) 500 mg PO BID [facility] Stop: 10/30/18 08:59 Last Admin: 09/03/18 08:10 Dose: 500 mg Lorazepam (Ativan) 0.5 mg IVP Q4HR PRN; Protocol PRN Reason: Agitation Stop: 10/31/18 14:15 Last Admin: 09/03/18 10:26 Dose: 0.5 mg Memantine (Namenda) 5 mg PO DAILY [facility] Stop: 10/30/18 08:59 Last Admin: 09/03/18 08:11 Dose: 5 mg Miscellaneous (Vte Chemical Prophylaxis Screen/Icu Transfer) 1 ea PRN PRN PRN Reason: PROTOCOL Stop: 10/30/18 08:14 Miscellaneous (Clinical Monitoring) 1 ea PRN PRN PRN Reason: RENAL Stop: 11/01/18 07:42 Miscellaneous (Probiotic Screen) 1 ea PRN PRN PRN Reason: PROTOCOL Stop: 11/02/18 10:59 Multivitamins/Vitamin C (Theragran) 1 tab PO DAILY [facility] Stop: 10/30/18 08:59 Last Admin: 09/03/18 08:11 Dose: 1 tab Mupirocin (Bactroban Oint) 1 appl TP BID [facility] Stop: 09/06/18 16:59 Last Admin: 09/03/18 08:15 Dose: 1 appl Ondansetron HCl (Zofran) 4 mg IV Q8H PRN PRN Reason: Nausea / Vomiting Stop: 10/29/18 22:03 Last Admin: 08/31/18 16:30 Dose: 4 mg Sevelamer Carbonate (Renvela) 800 mg PO TIDWM [facility] Stop: 11/01/18 16:59 Last Admin: 09/03/18 11:34 Dose: 800 mg General: Alert, No acute distress HEENT: Atraumatic, Mucous membr. moist/pink Neck: Supple Cardiovascular: Regular rate, Normal S1, Normal S2 Lungs: Clear to auscultation Abdomen: Bowel sounds, Soft Extremities: no Edema Neurological: Sensation intact Skin: no Rash Psych/Mental Status: Mood NL Assessment/Plan - Assessment Assessment: Anemia - Plan Plan: Anemia No active GI bleed EGD and colon if family agree, possibly next week
--- NOTE | 2018-09-03 13:20 | Internal Medicine Prog Note ---
Internal Medicine Subjective - Subjective Service Date: 09/03/18 (dc summary [id number]) Patient is:: awake, verbal Per staff patient has:: tolerating meds Internal Medicine Objective - Results Result Diagrams: 09/03/18 04:40 09/03/18 04:40 Recent Labs: Laboratory Last Values WBC 12.6 Th/cmm (4.8-10.8) H 09/03/18 04:40 RBC 3.50 Mil/cmm (3.80-5.20) L 09/03/18 04:40 Hgb 10.3 gm/dL (12-16) L D 09/03/18 04:40 Hct 30.1 % (41.0-60) L D 09/03/18 04:40 MCV 86.2 fl (81-100) 09/03/18 04:40 MCH 29.3 pg (27.0-31.0) 09/03/18 04:40 MCHC Differential 34.1 pg (28.0-36.0) 09/03/18 04:40 RDW 13.9 % (11.5-20.0) 09/03/18 04:40 Plt Count 280 Th/cmm (150-400) 09/03/18 04:40 MPV 7.1 fl 09/03/18 04:40 Add Manual Diff YES 09/03/18 04:40 Band Neutrophils % 3 % (0-10) 09/03/18 04:40 Neutrophils (Manual) 47 % (40-80) 09/03/18 04:40 Lymphocytes 14 % (20-50) L 09/03/18 04:40 Monocytes 2 % (2-10) 09/03/18 04:40 Eosinophils 34 % (0-5) H 09/03/18 04:40 Platelet Estimate ADEQUATE (NORMAL) 09/03/18 04:40 Morphology Comment YES 08/31/18 04:05 Eos Smear Source URINE 09/01/18 10:45 Eos Smear Total Cells NONE SEEN (NONE SEEN) 09/01/18 10:45 PT 10.3 SECONDS (9.5-11.5) 09/03/18 04:40 INR 0.99 (0.5-1.4) 09/03/18 04:40 PTT (Actin FS) 25.9 SECONDS (26.0-38.0) L 09/03/18 04:40 Specimen Source Arterial 08/31/18 14:33 Sample Site RB 08/31/18 14:33 pH 7.47 (7.35-7.45) H 08/31/18 14:33 pCO2 28.0 mmHg (35.0-45.0) L 08/31/18 14:33 pO2 84.0 mmHg (80.0-100.0) 08/31/18 14:33 HCO3 -2.2 mEq/L (20.0-26.0) L 08/31/18 14:33 Base Excess 23.2 mEq/L (-3.0-3.0) H 08/31/18 14:33 O2 Saturation 97.0 % (92.0-100.0) 08/31/18 14:33 Williams Test NA 08/31/18 14:33 Vent Rate NA 08/31/18 14:33 Inspired O2 21 08/31/18 14:33 Tidal Volume NA 08/31/18 14:33 PEEP NA 08/31/18 14:33 Pressure (ins/psv/peep) NA 08/31/18 14:33 Critical Value SH 08/31/18 14:33 Sodium 145 mEq/L (136-145) 09/03/18 04:40 Potassium 3.7 mEq/L (3.5-5.1) 09/03/18 04:40 Chloride 110 mEq/L (98-107) H 09/03/18 04:40 Carbon Dioxide 20.2 mEq/L (21.0-31.0) L 09/03/18 04:40 Anion Gap 18.5 (7.0-16.0) H 09/03/18 04:40 BUN 70 mg/dL (7-25) H 09/03/18 04:40 Creatinine 7.1 mg/dL (0.6-1.2) H* 09/03/18 04:40 Est GFR ( Amer) TNP 09/03/18 04:40 Est GFR (Non-Af Amer) TNP 09/03/18 04:40 BUN/Creatinine Ratio 9.9 09/03/18 04:40 Glucose 106 mg/dL (70-105) H 09/03/18 04:40 POC Glucose 259 MG/DL (70 - 105) H 08/30/18 22:35 Whole Bld Lactic Acid 1.09 mmol/L (0.60-1.99) 08/30/18 20:35 Uric Acid 9.6 mg/dL (2.3-6.6) H 09/01/18 04:25 Calcium 8.8 mg/dL (8.6-10.3) 09/03/18 04:40 Phosphorus 9.2 mg/dL (2.5-5.0) H* 08/31/18 04:05 Magnesium 1.5 mg/dL (1.9-2.7) L 09/02/18 04:50 Iron 49 ug/dL (27-139) 09/01/18 04:25 TIBC 239 ug/dL (250-450) L 09/01/18 04:25 Iron Saturation 21 % (15-55) 09/01/18 04:25 Unsaturated IBC 190 ug/dL (118-369) 09/01/18 04:25 Ferritin 930 ng/mL (15-150) H 09/01/18 04:25 Total Bilirubin 1.0 mg/dL (0.3-1.0) 09/02/18 04:50 AST 65 U/L (13-39) H 09/02/18 04:50 ALT 111 U/L (7-52) H 09/02/18 04:50 Alkaline Phosphatase 631 U/L (34-104) H 09/02/18 04:50 Ammonia 83 umol/L (16-53) H 08/30/18 20:35 Troponin I 0.05 ng/mL (0.01-0.05) 08/30/18 20:35 B-Natriuretic Peptide 42.8 pg/mL (5.0-100.0) 09/02/18 04:50 Total Protein 5.6 gm/dL (6.0-8.3) L 09/02/18 04:50 Albumin 2.8 gm/dL (3.7-5.3) L 09/02/18 04:50 Globulin 2.8 gm/dL 09/02/18 04:50 Albumin/Globulin Ratio 1.0 (1.0-1.8) 09/02/18 04:50 Lipase 23 U/L (11-82) 09/03/18 04:40 Vitamin B12 1615 pg/mL (232-1245) H 08/31/18 04:05 Folic Acid >20.0 ng/mL (>3.0) 08/31/18 04:05 TSH 2.57 uIU/ml (0.34-5.60) 08/30/18 20:35 Urine Source CATH 08/30/18 21:05 Urine Color YELLOW 08/30/18 21:05 Urine Clarity CLOUDY (CLEAR) H 08/30/18 21:05 Urine pH 6.0 (4.6 - 8.0) 08/30/18 21:05 Ur Specific [place] 1.015 (1.005-1.030) 08/30/18 21:05 Urine Protein 30 mg/dL (NEGATIVE) H 08/30/18 21:05 Urine Glucose (UA) 100 mg/dL (NEGATIVE) H 08/30/18 21:05 Urine Ketones NEGATIVE mg/dL (NEGATIVE) 08/30/18 21:05 Urine Blood MODERATE (NEGATIVE) H 08/30/18 21:05 Urine Nitrate POSITIVE (NEGATIVE) H 08/30/18 21:05 Urine Bilirubin NEGATIVE (NEGATIVE) 08/30/18 21:05 Urine Urobilinogen 0.2 E.U./dL (0.2 - 1.0) 08/30/18 21:05 Ur Leukocyte Esterase MODERATE (NEGATIVE) H 08/30/18 21:05 Urine RBC 2-5 /hpf (0-5) 08/30/18 21:05 Urine WBC 10-25 /hpf (0-5) H 08/30/18 21:05 Ur Epithelial Cells FEW /lpf (FEW) 08/30/18 21:05 Urine Bacteria 4+ /hpf (NONE SEEN) H 08/30/18 21:05 U Random Total Protein 105.0 mg/dL 09/01/18 13:28 Ur Random Sodium 65 mmol/L 09/01/18 13:59 Urine Collection Time 24 hours 09/01/18 13:28 Urine Total Volume 1700 ml 09/01/18 13:28 Urine Creatinine 64.0 mg/dl (28.0-217.0) 09/01/18 10:45 Creat Clearance 24 Hr 52 ml/min (88.00-128.00) L 09/01/18 10:45 Microalb/Creat Ratio 253.4 mg/g creat (0.0-30.0) H 09/01/18 10:45 U Tot Protein 24h, Calc 1785.0 mg/24 hr (0-165) H 09/01/18 13:28 Body Surface Area 0.28 09/01/18 10:45 Blood Type O NEGATIVE 09/02/18 05:20 Antibody Screen NEGATIVE 09/02/18 05:20 Crossmatch See Detail 09/02/18 05:20 - Physical Exam Vitals and I&O: Vital Signs Temp 98.5 F 09/03/18 06:00 Pulse 90 09/03/18 10:37 Resp 20 09/03/18 10:37 BP 148/76 09/03/18 10:00 Pulse Ox 98 09/03/18 10:37 Intake & Output 09/02/18 09/03/18 09/03/18 18:59 06:59 18:59 Intake Total 1000 700 897.333 Output Total 3020 Balance 1000 -2320 897.333 Weight (lbs) 152 lb Intake: Intake, IV Amount 1000 100 897.333 D5-0.45NS 1,000 ml @ 80 1000 897.333 mls/hr IV .[id number] [facility] Rx #:[id number] Piperacillin Sodium/ 100 Tazobact 2.25 gm In Sodium Chloride 0.9% 50 ml @ 100 mls/hr IV Q8HR [facility] Rx#:[id number] Oral 100 Blood Product 500 Output: Urine 3020 Other: # Bowel Movements 0 Weight Source Bedscale Active Medications: Current Medications Acetaminophen (Tylenol) 650 mg PO Q4H PRN PRN Reason: Pain Or Fever above 101 Stop: 10/29/18 22:03 Albuterol Sulfate (Albuterol 2.5mg/3ml Neb Ud) 2.5 mg HHN Q2HRT PRN PRN Reason: Shortness of Breath or Wheeze Stop: 10/29/18 22:03 Amantadine HCl (Symmetrel) 100 mg PO QOD [facility] Stop: 10/31/18 08:59 Last Admin: 09/03/18 08:10 Dose: 100 mg Diphenhydramine HCl (Benadryl) 25 mg PO QID PRN PRN Reason: Itching Stop: 10/30/18 12:23 Last Admin: 09/02/18 19:44 Dose: 25 mg Diphenhydramine HCl (Benadryl 50 Mg/Ml) 25 mg IVP Q6HR PRN PRN Reason: Itching Stop: 10/31/18 07:51 Last Admin: 09/03/18 08:11 Dose: 25 mg Epoetin Trey (Epogen) 5,000 units SUBQ TuThSa@1400 [facility] Stop: 10/31/18 13:59 Last Admin: 09/01/18 14:03 Dose: 5,000 units Ferrous Sulfate (Iron) 325 mg PO DAILY [facility] Stop: 10/30/18 08:59 Last Admin: 09/03/18 08:10 Dose: 325 mg Heparin Sodium (Porcine) (Heparin) 5,000 units SUBQ Q12HR [facility] Stop: 10/30/18 08:59 Last Admin: 09/03/18 08:11 Dose: 5,000 units Hydrocortisone (Hydrocortisone 1%) 1 appl TP BID PRN PRN Reason: Itching Stop: 10/30/18 16:59 Piperacillin Sod/Tazobactam (Sod 2.25 gm/ Sodium Chloride) 50 mls @ 100 mls/hr IV Q8HR [facility] Stop: 10/31/18 12:59 Last Admin: 09/03/18 12:31 Dose: 100 mls/hr Dextrose/Sodium Chloride (D5-0.45ns) 1,000 mls @ 80 mls/hr IV .[id number] [facility] Stop: 10/31/18 12:59 Last Admin: 09/03/18 08:28 Dose: 80 mls/hr Ipratropium [place] (Atrovent Neb 0.5mg/2.5ml) 0.5 mg HHN Q2HRT PRN PRN Reason: Shortness of Breath or Wheeze Stop: 10/29/18 22:03 Lactobacillus Rhamnosus (Culturelle 15b) 1 each PO DAILY [facility] Stop: 11/03/18 08:59 Lactulose (Cephulac) 30 gm PO DAILY [facility] Stop: 10/30/18 14:59 Last Admin: 09/03/18 08:10 Dose: 30 gm Levetiracetam (Keppra) 500 mg PO BID [facility] Stop: 10/30/18 08:59 Last Admin: 09/03/18 08:10 Dose: 500 mg Lorazepam (Ativan) 0.5 mg IVP Q4HR PRN; Protocol PRN Reason: Agitation Stop: 10/31/18 14:15 Last Admin: 09/03/18 10:26 Dose: 0.5 mg Memantine (Namenda) 5 mg PO DAILY [facility] Stop: 10/30/18 08:59 Last Admin: 09/03/18 08:11 Dose: 5 mg Miscellaneous (Vte Chemical Prophylaxis Screen/Icu Transfer) 1 ea PRN PRN PRN Reason: PROTOCOL Stop: 10/30/18 08:14 Miscellaneous (Clinical Monitoring) 1 ea PRN PRN PRN Reason: RENAL Stop: 11/01/18 07:42 Miscellaneous (Probiotic Screen) 1 ea PRN PRN PRN Reason: PROTOCOL Stop: 11/02/18 10:59 Multivitamins/Vitamin C (Theragran) 1 tab PO DAILY [facility] Stop: 10/30/18 08:59 Last Admin: 09/03/18 08:11 Dose: 1 tab Mupirocin (Bactroban Oint) 1 appl TP BID [facility] Stop: 09/06/18 16:59 Last Admin: 09/03/18 08:15 Dose: 1 appl Ondansetron HCl (Zofran) 4 mg IV Q8H PRN PRN Reason: Nausea / Vomiting Stop: 10/29/18 22:03 Last Admin: 08/31/18 16:30 Dose: 4 mg Sevelamer Carbonate (Renvela) 800 mg PO TIDWM [facility] Stop: 11/01/18 16:59 Last Admin: 09/03/18 11:34 Dose: 800 mg General: weak, alert HEENT: NC/AT, PERRLA Neck: Supple Lungs: CTAB Cardiovascular: RRR, Normal S1, Normal S2 Abdomen: soft, non-tender, non-distended, positive bowel sound Neurological: alert Internal Medicine Assmt/Plan - Assessment Assessment: acute uti acute renal failure secondary to severe dehydration anemia leukocytosis mild protein calorie malnutrition htn cad dyslipidemia gerd dementia epilepsy - Plan Plan: transfuse 2 units psych/gi consult follow up labs in am continue ivf for hydration continue iv rocephin continue current plan of care Nutritional Asmnt/Malnutr-PDOC - Dietary Evaluation Malnutrition Findings (Please click <Entered> for more info): Nutritional Asmnt/Malnutrition Start: 08/31/18 13: 28 Text: Status: Complete Freq: Protocol: Document 08/31/18 13:28 LCHENG (Rec: 08/31/18 13:50 [email or web address]) Nutritional Asmnt/Malnutrition Patient General Information Nutritional Screening High Risk Consult Diagnosis acute renal failure Pertinent Medical Hx/Surgical Hx HTN, CAD, hyslipidemia, PUD/ GERD, dementia, Epilepsy, anemia, IBS, anxiety Subjective Information Pt seen resting in bed at time of visit, family at bedside talking with MD. Renal diet started from lunch. Consult received for BS 259. Current Diet Order/ Nutrition Support renal Pertinent Medications D5-0.45ns, iron, theragran Pertinent Labs 08/31 K 4.7 (improved), Cl 110 , BUN 137, Cr 10.8, glucose 202, Phos 9.2, Alb 3.4 08/30 K 6.1, BUN 140, Cr 11.1, glucose 159, alb 3.9 Nutritional Hx/Data Height 5 ft 2 in Height (Calculated Centimeters) 157.5 Current Weight (lbs) 148 lb Weight (Calculated Kilograms) 67.1 Weight (Calculated Grams) 62531.7 [place] Body Weight 120 Body Mass Index (BMI) 27.1 Weight Status Overweight GI Symptoms GI Symptoms None Last BM not indicated Difficult in: None Skin Integrity/Comment: scar to left face, rash to left leg, abdomen, right/left upper arm Estimated Nutritional Goals BEE in Kcals: Using Current wt Calories/Kcals/Kg 23-27 Kcals Calculated 0514-6303 Protein: Using Current wt Protein g/k.7 Protein Calculated 47 monitor renal labs Fluid: ml per MD Nutritional Problem 1. Problem Problem altered nutrition related labs Etiology acute renal failure Signs/Symptoms: BUN 137-140, Cr 10.8-11.1, glucose 159-202, Phos 9.2 Malnutrition Alert Is there a minimum of two criteria No selected? Query Text:Check all the applicable criteria. A minimum of two criteria are recommended for diagnosis of either severe or non-severe malnutrition. Intervention/Recommendation Comments 1. Continue with renal diet as ordered. Limit protein intake to 50g per day. Modify diet to renal 50g per protocol. 2. Monitor PO intake, wt, labs and skin integrity 3. F/U as high risk in 2-3 days, 09/02-09/03 Expected Outcomes/Goals Expected Outcomes/Goals 1. PO intake to meet at least 75% of nutritional needs. 2. Wt stability, skin to remain intact, labs to approach WNL.
--- NOTE | 2018-09-03 13:54 | General Progress Note ---
Subjective - Review of Systems Service Date: 09/03/18 Subjective: less agitation, comfortable Objective - Results Result Diagrams: 09/03/18 04:40 09/03/18 04:40 Recent Labs: Laboratory Last Values WBC 12.6 Th/cmm (4.8-10.8) H 09/03/18 04:40 RBC 3.50 Mil/cmm (3.80-5.20) L 09/03/18 04:40 Hgb 10.3 gm/dL (12-16) L D 09/03/18 04:40 Hct 30.1 % (41.0-60) L D 09/03/18 04:40 MCV 86.2 fl (81-100) 09/03/18 04:40 MCH 29.3 pg (27.0-31.0) 09/03/18 04:40 MCHC Differential 34.1 pg (28.0-36.0) 09/03/18 04:40 RDW 13.9 % (11.5-20.0) 09/03/18 04:40 Plt Count 280 Th/cmm (150-400) 09/03/18 04:40 MPV 7.1 fl 09/03/18 04:40 Add Manual Diff YES 09/03/18 04:40 Band Neutrophils % 3 % (0-10) 09/03/18 04:40 Neutrophils (Manual) 47 % (40-80) 09/03/18 04:40 Lymphocytes 14 % (20-50) L 09/03/18 04:40 Monocytes 2 % (2-10) 09/03/18 04:40 Eosinophils 34 % (0-5) H 09/03/18 04:40 Platelet Estimate ADEQUATE (NORMAL) 09/03/18 04:40 Morphology Comment YES 08/31/18 04:05 Eos Smear Source URINE 09/01/18 10:45 Eos Smear Total Cells NONE SEEN (NONE SEEN) 09/01/18 10:45 PT 10.3 SECONDS (9.5-11.5) 09/03/18 04:40 INR 0.99 (0.5-1.4) 09/03/18 04:40 PTT (Actin FS) 25.9 SECONDS (26.0-38.0) L 09/03/18 04:40 Specimen Source Arterial 08/31/18 14:33 Sample Site RB 08/31/18 14:33 pH 7.47 (7.35-7.45) H 08/31/18 14:33 pCO2 28.0 mmHg (35.0-45.0) L 08/31/18 14:33 pO2 84.0 mmHg (80.0-100.0) 08/31/18 14:33 HCO3 -2.2 mEq/L (20.0-26.0) L 08/31/18 14:33 Base Excess 23.2 mEq/L (-3.0-3.0) H 08/31/18 14:33 O2 Saturation 97.0 % (92.0-100.0) 08/31/18 14:33 Williams Test NA 08/31/18 14:33 Vent Rate NA 08/31/18 14:33 Inspired O2 21 08/31/18 14:33 Tidal Volume NA 08/31/18 14:33 PEEP NA 08/31/18 14:33 Pressure (ins/psv/peep) NA 08/31/18 14:33 Critical Value SH 08/31/18 14:33 Sodium 145 mEq/L (136-145) 09/03/18 04:40 Potassium 3.7 mEq/L (3.5-5.1) 09/03/18 04:40 Chloride 110 mEq/L (98-107) H 09/03/18 04:40 Carbon Dioxide 20.2 mEq/L (21.0-31.0) L 09/03/18 04:40 Anion Gap 18.5 (7.0-16.0) H 09/03/18 04:40 BUN 70 mg/dL (7-25) H 09/03/18 04:40 Creatinine 7.1 mg/dL (0.6-1.2) H* 09/03/18 04:40 Est GFR ( Amer) TNP 09/03/18 04:40 Est GFR (Non-Af Amer) TNP 09/03/18 04:40 BUN/Creatinine Ratio 9.9 09/03/18 04:40 Glucose 106 mg/dL (70-105) H 09/03/18 04:40 POC Glucose 259 MG/DL (70 - 105) H 08/30/18 22:35 Whole Bld Lactic Acid 1.09 mmol/L (0.60-1.99) 08/30/18 20:35 Uric Acid 9.6 mg/dL (2.3-6.6) H 09/01/18 04:25 Calcium 8.8 mg/dL (8.6-10.3) 09/03/18 04:40 Phosphorus 9.2 mg/dL (2.5-5.0) H* 08/31/18 04:05 Magnesium 1.5 mg/dL (1.9-2.7) L 09/02/18 04:50 Iron 49 ug/dL (27-139) 09/01/18 04:25 TIBC 239 ug/dL (250-450) L 09/01/18 04:25 Iron Saturation 21 % (15-55) 09/01/18 04:25 Unsaturated IBC 190 ug/dL (118-369) 09/01/18 04:25 Ferritin 930 ng/mL (15-150) H 09/01/18 04:25 Total Bilirubin 1.0 mg/dL (0.3-1.0) 09/02/18 04:50 AST 65 U/L (13-39) H 09/02/18 04:50 ALT 111 U/L (7-52) H 09/02/18 04:50 Alkaline Phosphatase 631 U/L (34-104) H 09/02/18 04:50 Ammonia 83 umol/L (16-53) H 08/30/18 20:35 Troponin I 0.05 ng/mL (0.01-0.05) 08/30/18 20:35 B-Natriuretic Peptide 42.8 pg/mL (5.0-100.0) 09/02/18 04:50 Total Protein 5.6 gm/dL (6.0-8.3) L 09/02/18 04:50 Albumin 2.8 gm/dL (3.7-5.3) L 09/02/18 04:50 Globulin 2.8 gm/dL 09/02/18 04:50 Albumin/Globulin Ratio 1.0 (1.0-1.8) 09/02/18 04:50 Lipase 23 U/L (11-82) 09/03/18 04:40 Vitamin B12 1615 pg/mL (232-1245) H 08/31/18 04:05 Folic Acid >20.0 ng/mL (>3.0) 08/31/18 04:05 TSH 2.57 uIU/ml (0.34-5.60) 08/30/18 20:35 Urine Source CATH 08/30/18 21:05 Urine Color YELLOW 08/30/18 21:05 Urine Clarity CLOUDY (CLEAR) H 08/30/18 21:05 Urine pH 6.0 (4.6 - 8.0) 08/30/18 21:05 Ur Specific [place] 1.015 (1.005-1.030) 08/30/18 21:05 Urine Protein 30 mg/dL (NEGATIVE) H 08/30/18 21:05 Urine Glucose (UA) 100 mg/dL (NEGATIVE) H 08/30/18 21:05 Urine Ketones NEGATIVE mg/dL (NEGATIVE) 08/30/18 21:05 Urine Blood MODERATE (NEGATIVE) H 08/30/18 21:05 Urine Nitrate POSITIVE (NEGATIVE) H 08/30/18 21:05 Urine Bilirubin NEGATIVE (NEGATIVE) 08/30/18 21:05 Urine Urobilinogen 0.2 E.U./dL (0.2 - 1.0) 08/30/18 21:05 Ur Leukocyte Esterase MODERATE (NEGATIVE) H 08/30/18 21:05 Urine RBC 2-5 /hpf (0-5) 08/30/18 21:05 Urine WBC 10-25 /hpf (0-5) H 08/30/18 21:05 Ur Epithelial Cells FEW /lpf (FEW) 08/30/18 21:05 Urine Bacteria 4+ /hpf (NONE SEEN) H 08/30/18 21:05 U Random Total Protein 105.0 mg/dL 09/01/18 13:28 Ur Random Sodium 65 mmol/L 09/01/18 13:59 Urine Collection Time 24 hours 09/01/18 13:28 Urine Total Volume 1700 ml 09/01/18 13:28 Urine Creatinine 64.0 mg/dl (28.0-217.0) 09/01/18 10:45 Creat Clearance 24 Hr 52 ml/min (88.00-128.00) L 09/01/18 10:45 Microalb/Creat Ratio 253.4 mg/g creat (0.0-30.0) H 09/01/18 10:45 U Tot Protein 24h, Calc 1785.0 mg/24 hr (0-165) H 09/01/18 13:28 Body Surface Area 0.28 09/01/18 10:45 Blood Type O NEGATIVE 09/02/18 05:20 Antibody Screen NEGATIVE 09/02/18 05:20 Crossmatch See Detail 09/02/18 05:20 - Physical Exam Vitals and I&O: Vital Signs Temp 98.1 F 09/03/18 12:00 Pulse 72 09/03/18 12:00 Resp 34 09/03/18 12:00 BP 123/83 09/03/18 12:00 Pulse Ox 100 09/03/18 12:00 Intake & Output 09/02/18 09/03/18 09/03/18 18:59 06:59 18:59 Intake Total 1000 700 897.333 Output Total 3020 Balance 1000 -2320 897.333 Weight (lbs) 68.946 kg Intake: Intake, IV Amount 1000 100 897.333 D5-0.45NS 1,000 ml @ 80 1000 897.333 mls/hr IV .[id number] [facility] Rx #:[id number] Piperacillin Sodium/ 100 Tazobact 2.25 gm In Sodium Chloride 0.9% 50 ml @ 100 mls/hr IV Q8HR [facility] Rx#:[id number] Oral 100 Blood Product 500 Output: Urine 3020 Other: # Bowel Movements 0 Weight Source Bedscale Active Medications: Current Medications Acetaminophen (Tylenol) 650 mg PO Q4H PRN PRN Reason: Pain Or Fever above 101 Stop: 10/29/18 22:03 Albuterol Sulfate (Albuterol 2.5mg/3ml Neb Ud) 2.5 mg HHN Q2HRT PRN PRN Reason: Shortness of Breath or Wheeze Stop: 10/29/18 22:03 Amantadine HCl (Symmetrel) 100 mg PO QOD LENA Stop: 10/31/18 08:59 Last Admin: 09/03/18 08:10 Dose: 100 mg Diphenhydramine HCl (Benadryl) 25 mg PO QID PRN PRN Reason: Itching Stop: 10/30/18 12:23 Last Admin: 09/02/18 19:44 Dose: 25 mg Diphenhydramine HCl (Benadryl 50 Mg/Ml) 25 mg IVP Q6HR PRN PRN Reason: Itching Stop: 10/31/18 07:51 Last Admin: 09/03/18 08:11 Dose: 25 mg Epoetin Trey (Epogen) 5,000 units SUBQ TuThSa@1400 [facility] Stop: 10/31/18 13:59 Last Admin: 09/01/18 14:03 Dose: 5,000 units Ferrous Sulfate (Iron) 325 mg PO DAILY LENA Stop: 10/30/18 08:59 Last Admin: 09/03/18 08:10 Dose: 325 mg Heparin Sodium (Porcine) (Heparin) 5,000 units SUBQ Q12HR [facility]NA Stop: 10/30/18 08:59 Last Admin: 09/03/18 08:11 Dose: 5,000 units Hydrocortisone (Hydrocortisone 1%) 1 appl TP BID PRN PRN Reason: Itching Stop: 10/30/18 16:59 Piperacillin Sod/Tazobactam (Sod 2.25 gm/ Sodium Chloride) 50 mls @ 100 mls/hr IV Q8HR [facility] Stop: 10/31/18 12:59 Last Admin: 09/03/18 12:31 Dose: 100 mls/hr Dextrose/Sodium Chloride (D5-0.45ns) 1,000 mls @ 80 mls/hr IV .[id number] [facility] Stop: 10/31/18 12:59 Last Admin: 09/03/18 08:28 Dose: 80 mls/hr Ipratropium [place] (Atrovent Neb 0.5mg/2.5ml) 0.5 mg HHN Q2HRT PRN PRN Reason: Shortness of Breath or Wheeze Stop: 10/29/18 22:03 Lactobacillus Rhamnosus (Culturelle 15b) 1 each PO DAILY [facility] Stop: 11/03/18 08:59 Lactulose (Cephulac) 30 gm PO DAILY LENA Stop: 10/30/18 14:59 Last Admin: 09/03/18 08:10 Dose: 30 gm Levetiracetam (Keppra) 500 mg PO BID LENA Stop: 10/30/18 08:59 Last Admin: 09/03/18 08:10 Dose: 500 mg Lorazepam (Ativan) 0.5 mg IVP Q4HR PRN; Protocol PRN Reason: Agitation Stop: 10/31/18 14:15 Last Admin: 09/03/18 10:26 Dose: 0.5 mg Memantine (Namenda) 5 mg PO DAILY LENA Stop: 10/30/18 08:59 Last Admin: 09/03/18 08:11 Dose: 5 mg Miscellaneous (Vte Chemical Prophylaxis Screen/Icu Transfer) 1 ea PRN PRN PRN Reason: PROTOCOL Stop: 10/30/18 08:14 Miscellaneous (Clinical Monitoring) 1 ea PRN PRN PRN Reason: RENAL Stop: 11/01/18 07:42 Miscellaneous (Probiotic Screen) 1 ea PRN PRN PRN Reason: PROTOCOL Stop: 11/02/18 10:59 Multivitamins/Vitamin C (Theragran) 1 tab PO DAILY LENA Stop: 10/30/18 08:59 Last Admin: 09/03/18 08:11 Dose: 1 tab Mupirocin (Bactroban Oint) 1 appl TP BID LENA Stop: 09/06/18 16:59 Last Admin: 09/03/18 08:15 Dose: 1 appl Ondansetron HCl (Zofran) 4 mg IV Q8H PRN PRN Reason: Nausea / Vomiting Stop: 10/29/18 22:03 Last Admin: 08/31/18 16:30 Dose: 4 mg Sevelamer Carbonate (Renvela) 800 mg PO TIDWM [facility] Stop: 11/01/18 16:59 Last Admin: 09/03/18 11:34 Dose: 800 mg General: Alert, No acute distress HEENT: Atraumatic, Mucous membr. moist/pink Neck: Supple Cardiovascular: Regular rate, Normal S1, Normal S2 Lungs: Clear to auscultation Abdomen: Bowel sounds, Soft Extremities: no Edema Neurological: Sensation intact Skin: no Rash Psych/Mental Status: Mood NL Assessment/Plan - Assessment Assessment: MARIA ESTHER ALOC Met/Toxic Enceph Sepsis 2/2 Cx E. coli UTI Shock Liver AG Met Acid Epilepsy Anemia of CD - Plan Plan: Lab - Result Diagrams 09/01/18 04:25 09/01/18 10:45 Current Medications Acetaminophen (Tylenol) 650 mg PO Q4H PRN PRN Reason: Pain Or Fever above 101 Stop: 10/29/18 22:03 Albuterol Sulfate (Albuterol 2.5mg/3ml Neb Ud) 2.5 mg HHN Q2HRT PRN PRN Reason: Shortness of Breath or Wheeze Stop: 10/29/18 22:03 Amantadine HCl (Symmetrel) 100 mg PO QOD LENA Stop: 10/31/18 08:59 Last Admin: 09/01/18 08:05 Dose: 100 mg Diphenhydramine HCl (Benadryl) 25 mg PO QID PRN PRN Reason: Itching Stop: 10/30/18 12:23 Last Admin: 09/01/18 02:32 Dose: 25 mg Diphenhydramine HCl (Benadryl 50 Mg/Ml) 25 mg IVP Q6HR PRN PRN Reason: Itching Stop: 10/31/18 07:51 Last Admin: 09/01/18 13:10 Dose: 25 mg Epoetin Trey (Epogen) 5,000 units SUBQ TuThSa@1400 [facility] Stop: 10/31/18 13:59 Ferrous Sulfate (Iron) 325 mg PO DAILY [facility] Stop: 10/30/18 08:59 Last Admin: 09/01/18 08:05 Dose: 325 mg Heparin Sodium (Porcine) (Heparin) 5,000 units SUBQ Q12HR [facility] Stop: 10/30/18 08:59 Last Admin: 09/01/18 08:06 Dose: 5,000 units Hydrocortisone (Hydrocortisone 1%) 1 appl TP BID PRN PRN Reason: Itching Stop: 10/30/18 16:59 Piperacillin Sod/Tazobactam (Sod 2.25 gm/ Sodium Chloride) 50 mls @ 100 mls/hr IV Q8HR [facility] Stop: 10/31/18 12:59 Dextrose/Sodium Chloride (D5-0.45ns) 1,000 mls @ 80 mls/hr IV .[id number] [facility] Stop: 10/31/18 12:59 Last Admin: 09/01/18 13:10 Dose: 80 mls/hr Ipratropium [place] (Atrovent Neb 0.5mg/2.5ml) 0.5 mg HHN Q2HRT PRN PRN Reason: Shortness of Breath or Wheeze Stop: 10/29/18 22:03 Lactulose (Cephulac) 30 gm PO DAILY [facility] Stop: 10/30/18 14:59 Last Admin: 09/01/18 08:05 Dose: 30 gm Levetiracetam (Keppra) 500 mg PO BID [facility] Stop: 10/30/18 08:59 Last Admin: 09/01/18 08:05 Dose: 500 mg Memantine (Namenda) 5 mg PO DAILY [facility]NA Stop: 10/30/18 08:59 Last Admin: 09/01/18 08:05 Dose: 5 mg Miscellaneous (Vte Chemical Prophylaxis Screen/Icu Transfer) 1 ea MC PRN PRN PRN Reason: PROTOCOL Stop: 10/30/18 08:14 Multivitamins/Vitamin C (Theragran) 1 tab PO DAILY LENA Stop: 10/30/18 08:59 Last Admin: 09/01/18 08:05 Dose: 1 tab Mupirocin (Bactroban Oint) 1 appl TP BID [facility] Stop: 09/06/18 16:59 Ondansetron HCl (Zofran) 4 mg IV Q8H PRN PRN Reason: Nausea / Vomiting Stop: 10/29/18 22:03 Last Admin: 08/31/18 16:30 Dose: 4 mg Lab - Result Diagrams 09/03/18 04:40 09/03/18 04:40 Kidney fnc gradually improving w/ BUN/CR of 70/7.1 now nonoliguric continue IVF, encourage po fluid intake maintain Zosyn f/u electrolytes, cbc FE Na 5.77% suggestive of intrinsic renal failure Hgb/Hct improved to 10.3/30.1 after transfusion Nutritional Asmnt/Malnutr-PDOC - Dietary Evaluation Malnutrition Findings (Please click <Entered> for more info): Nutritional Asmnt/Malnutrition Start: 08/31/18 13: 28 Text: Status: Complete Freq: Protocol: Document 08/31/18 13:28 LCHENG (Rec: 08/31/18 13:50 [email or web address] [id number]) Nutritional Asmnt/Malnutrition Patient General Information Nutritional Screening High Risk Consult Diagnosis acute renal failure Pertinent Medical Hx/Surgical Hx HTN, CAD, hyslipidemia, PUD/ GERD, dementia, Epilepsy, anemia, IBS, anxiety Subjective Information Pt seen resting in bed at time of visit, family at bedside talking with MD. Renal diet started from lunch. Consult received for BS 259. Current Diet Order/ Nutrition Support renal Pertinent Medications D5-0.45ns, iron, theragran Pertinent Labs 08/31 K 4.7 (improved), Cl 110 , BUN 137, Cr 10.8, glucose 202, Phos 9.2, Alb 3.4 08/30 K 6.1, BUN 140, Cr 11.1, glucose 159, alb 3.9 Nutritional Hx/Data Height 1.57 m Height (Calculated Centimeters) 157.5 Current Weight (lbs) 67.132 kg Weight (Calculated Kilograms) 67.1 Weight (Calculated Grams) 25621.7 [place] Body Weight 120 Body Mass Index (BMI) 27.1 Weight Status Overweight GI Symptoms GI Symptoms None Last BM not indicated Difficult in: None Skin Integrity/Comment: scar to left face, rash to left leg, abdomen, right/left upper arm Estimated Nutritional Goals BEE in Kcals: Using Current wt Calories/Kcals/Kg 23-27 Kcals Calculated 2951-0484 Protein: Using Current wt Protein g/k.7 Protein Calculated 47 monitor renal labs Fluid: ml per MD Nutritional Problem 1. Problem Problem altered nutrition related labs Etiology acute renal failure Signs/Symptoms: BUN 137-140, Cr 10.8-11.1, glucose 159-202, Phos 9.2 Malnutrition Alert Is there a minimum of two criteria No selected? Query Text:Check all the applicable criteria. A minimum of two criteria are recommended for diagnosis of either severe or non-severe malnutrition. Intervention/Recommendation Comments 1. Continue with renal diet as ordered. Limit protein intake to 50g per day. Modify diet to renal 50g per protocol. 2. Monitor PO intake, wt, labs and skin integrity 3. F/U as high risk in 2-3 days, 09/02-09/03 Expected Outcomes/Goals Expected Outcomes/Goals 1. PO intake to meet at least 75% of nutritional needs. 2. Wt stability, skin to remain intact, labs to approach WNL.
[2018-09-03] MEDS: Epoetin Alfa 20000 Units/mL Vial SUBQ SCH (14:48)
--- NOTE | 2018-09-03 15:39 | Discharge Summary ---
DATE OF DISCHARGE: 09/03/2018 DATE OF DISCHARGE: 09/03/2018. DISCHARGE DIAGNOSES: Acute urinary tract infection, with E. coli, acute renal insufficiency secondary to severe dehydration, anemia, leukocytosis, mild protein-calorie malnutrition, hypertension, coronary artery disease, dyslipidemia, gastroesophageal reflux disease, dementia, epilepsy. HISTORY OF PRESENT ILLNESS: A 78-year-old female well known to me from [facility], admitted to the ICU unit. The patient's BUN and creatinine was noted to be elevated. BUN of 140 and creatinine of 11.1, potassium 6.1 and phosphorus 9.2. PHYSICAL EXAMINATION: GENERAL: Elderly female, awake, alert, in no apparent distress. VITAL SIGNS: Stable. HEENT: Normocephalic, atraumatic. NECK: Supple. No mass. LUNGS: Clear bilaterally. HEART: Regular rate and rhythm. ABDOMEN: Soft, nontender. HOSPITAL COURSE: During the hospital, the patient was admitted to the ICU unit. The patient was kept on aggressive IV fluids for hydration. The patient also had a renal consultation done. Abdominal ultrasound was also done, impression was suboptimal evaluation of the lower pole of the bilateral kidneys, no evidence of hydronephrosis. Gallbladder and common duct were not visualized and may be secondary to gallbladder contraction and/or body habitus; however, previous cholecystectomy cannot be excluded. A 24-hour urine creatinine clearance was also collected. The patient had an episode of hemoglobin of 7.1. The patient was transfused with 2 units of PRBCs. The patient's BUN and creatinine slightly improved with aggressive IV fluids for hydration. Due to the need of IV antibiotics, patient will be transferred to [facility]. CONDITION UPON DISCHARGE: Fair. DISPOSITION: [facility]. JOB# [id number]
[2018-09-04] MEDS ORDERED: Lactobacillus Rhamnosus GG 15 Billion CFU CAP.SPRINK PO SCH (09:00)
== END 2018-09-03 20:05 | DRG 871 ==
LOC: ER 20:13 → ICU 22:00
PROVIDERS: ADMIT Internal Medicine; ATTEND Internal Medicine
PROC: 30233N1 Transfusion of Nonautologous Red Blood Cells into Peripheral Vein, Percutaneous Approach (ICD-10-PCS; principal; 2018-09-02)
DX: A41.9 Sepsis, unspecified organism (principal); K72.00 Acute and subacute hepatic failure without coma; G92 Toxic encephalopathy; N39.0 Urinary tract infection, site not specified; E44.1 Mild protein-calorie malnutrition; N17.9 Acute kidney failure, unspecified; E86.0 Dehydration; D64.9 Anemia, unspecified; I25.10 Atherosclerotic heart disease of native coronary artery without angina pectoris; E78.5 Hyperlipidemia, unspecified; K21.9 Gastro-esophageal reflux disease without esophagitis; I12.9 Hypertensive chronic kidney disease with stage 1 through stage 4 chronic kidney disease, or unspecified chronic kidney disease; F03.90 Unspecified dementia, unspecified severity, without behavioral disturbance, psychotic disturbance, mood disturbance, and anxiety; G40.909 Epilepsy, unspecified, not intractable, without status epilepticus; N18.9 Chronic kidney disease, unspecified; K58.9 Irritable bowel syndrome, unspecified; E87.5 Hyperkalemia; D63.8 Anemia in other chronic diseases classified elsewhere; B96.20 Unspecified Escherichia coli [E. coli] as the cause of diseases classified elsewhere; Z68.27 Body mass index [BMI] 27.0-27.9, adult
CPT/HCPCS: 36415-UA; 36600-90; 71045-TC; 76700-TC; 80048-TC; 80053-TC; 80299-90; 81001-TC; 81015-TC; 81050-TC; 82043-90; 82140-TC; 82570-TC; 82575-TC; 82607-90; 82728-90; 82746-90; 82803-TC; 82948-90; 83036-90; 83540-90; 83550-90; 83605; 83690-TC; 83735-TC; 83880-TC; 84100-TC; 84156-TC; 84300-TC; 84443-TC; 84484-TC; 84550-TC; 85007-TC; 85025-TC; 85610-TC; 85730-TC; 86850-TC; 86900-TC; 86901-TC; 86922-TC; 87086-90; 90799; 93005; 94640; 94760; 96375; J0610; J0696; J0885; J1200; J1644; J1815; J2060; J2405; J2543; J3475; J7040; J7613; J7799; P9016; X3401; Z7610